=== PATIENT | male | born 1950 | race Caucasian/White ===

== ENCOUNTER 2016-10-24 12:16 | Inpatient (IN) | payer OTHER ==
[2016-10-24] VITALS (15 sets, daily range): BP systolic 72–135; BP diastolic 28–74
[~2016-10-24] VITALS: Ht 170.2 cm; Wt 88.9 kg
[~2016-10-24 12:16] MED LIST: STERILE WATER FOR INJECTION 10ML VIAL ONE; VECURONIUM BROMIDE 10 MG/VIAL IV ONE
[2016-10-24] MEDS ORDERED: TERBUTALINE SULFATE 1MG/ML VIAL SUBCUT STA (12:27)
[2016-10-24] MEDS ORDERED: ALBUTEROL (0.083%) 2.5MG/3ML NEB HHN STA ×2 (12:27→14:58)
[2016-10-24] MEDS ORDERED: IPRATROPIUM BROMIDE (0.02%) 0.5MG/2.5ML NEB HHN STA ×2 (12:27→14:58)
[2016-10-24] MEDS ORDERED: MAGNESIUM 2 G PREMIX 50 ML IV STA (12:27)
[2016-10-24] MEDS ORDERED: METHYLPREDNISOLONE SOD SUCC 125 MG/2 ML VIAL IV STA (12:27)
[2016-10-24] MEDS ORDERED: TERBUTALINE SULFATE 1MG/ML VIAL ONE (12:35)
[2016-10-24 12:56] LABS: BASOPHILS % 0.4 % (0.0-2.0); EOSINOPHILS % 0.6 % (0.0-5.0); HEMOGLOBIN. 11.1 g/dL (14.0-18.0); LYMPHOCYTES % 22.1 % (20.0-50.0); MEAN CORPUSCULAR HEMOGLOBIN 33.2 pg (28.0-32.0); MEAN CORPUSCULAR VOLUME 95.5 fL (80.0-94.0); MEAN PLATELET VOLUME 9.6 fl (7.4-10.4); MONOCYTES % 7.8 % (2.0-8.0); NEUTROPHILS % 69.1 % (40.0-76.0); PLATELET 205 x1000/uL (130-400); RED BLOOD CELL COUNT 3.35 mill/uL (4.7-6.1); RED CELL DISTRIBUTION WIDTH 13.2 % (11.6-14.6)
[2016-10-24] MEDS ORDERED: PIPERACILLIN/TAZ 3.375G PREMIX 50 ML IV ONE (13:00)
[2016-10-24 13:09] LABS: INR 1.5; PROTHROMBIN TIME 15.4 sec
[2016-10-24 13:13] LABS: CARBON DIOXIDE 13 mEq/L (21-32); CHLORIDE 77 mEq/L (98-107)
[2016-10-24] MEDS ORDERED: ASPIRIN 325MG TABLET PO ONE (13:30)
[2016-10-24] MEDS ORDERED: SODIUM CHLORIDE 0.9% 1000ML BAG (SEPSIS BOLUS) IV ONE (13:30)
[2016-10-24] MEDS ORDERED: ENOXAPARIN 80MG/0.8ML SYR SUBCUT ONE (13:45)
[2016-10-24] MEDS ORDERED: FUROSEMIDE 40MG/4ML VIAL IVP ONE ×2 (13:45→16:30)
[2016-10-24] MEDS ORDERED: SODIUM CHLORIDE 0.9% 10ML VIAL ONE (14:00)
[2016-10-24] MEDS ORDERED: IOHEXOL-350 100 ML BOTTLE ONE (14:00)
[2016-10-24] MEDS ORDERED: SODIUM POLYSTYRENE SULFONATE 15 G/60 ML BOT PO ONE (14:45)
[2016-10-24] MEDS ORDERED: DEXTROSE 50% WATER 50ML SYRINGE IV ONE (14:45)
[2016-10-24] MEDS ORDERED: INSULIN REGULAR (HUMULIN R) 300UNITS/3ML IV ONE (14:45)
[2016-10-24] MEDS ORDERED: TERBUTALINE SULFATE 1MG/ML VIAL SUBCUT ONE (15:30)
[2016-10-24] MEDS ORDERED: MORPHINE SULFATE 2 MG/ML CPJ (NOT FOR IM USE) IV ONE (15:30)
[2016-10-24 15:37] LABS: CLARITY URINE CLEAR (CLEAR); COLOR URINE YELLOW (YELLOW); GLUCOSE URINE TRACE (NEGATIVE); KETONES URINE TRACE (NEGATIVE); LEUKOCYTE ESTERASE URINE NEGATIVE (NEGATIVE); NITRITE URINE NEGATIVE (NEGATIVE); OCCULT BLOOD URINE NEGATIVE (NEGATIVE); PROTEIN URINE NEGATIVE (NEGATIVE); SPECIFIC GRAVITY URINE 1.015 (1.005-1.030)
[2016-10-24] MEDS ORDERED: CLONIDINE 0.1MG TABLET PO PRN ×2 (16:30→16:45)
[2016-10-24 16:38] LABS: BG BASE EXCESS -11.9 mmol/L (-2.0-2.0); BG CARBOXYHEMOGLOBIN 0.3 % (0.5-1.5); BG DEOXYHEMOGLOBIN 0.4 % (0.0-5.0); BG FRACTION INSPIRED OXYGEN 100; BG METHEMOGLOBIN 0.2 % (0.0-1.5); BG OXYGEN SATURATION 99.6 % (92.0-98.5); BG OXYHEMOGLOBIN 99.1 % (94.0-97.0); BG PCO2 22.9 mmHg (35.0-45.0); BG PH 7.338 (7.350-7.450); BG PO2 265.9 mmHg (75.0-100.0); BG SAMPLE SITE LEFT RADIAL; BG TOTAL HEMOGLOBIN 12.2 g/dL (12.0-18.0); BG VENT MODE VENT - PCV; BG VENT RATE 4 set
[2016-10-24] MEDS ORDERED: ACETAMINOPHEN 325MG TABLET PO PRN (16:45)
[2016-10-24] MEDS ORDERED: NITROGLYCERIN 0.4MG TABLET SL SL PRN (16:45)
[2016-10-24] MEDS ORDERED: GUAIFENESIN 200MG/10ML SUGAR FREE UDC PO PRN (16:45)
[2016-10-24] MEDS ORDERED: AZITHROMYCIN 500 MG in DEXT 5% WATER 250 ML IV SCH (16:45)
[2016-10-24] MEDS ORDERED: ONDANSETRON HCL 4MG/2ML VIAL IV PRN (16:45)
[2016-10-24] MEDS ORDERED: DOCUSATE SODIUM 100MG CAPSULE PO PRN (16:45)
[2016-10-24] MEDS ORDERED: TRAMADOL 50MG TABLET PO PRN (16:45)
[2016-10-24] MEDS ORDERED: IPRATROPIUM/ALBUTEROL 0.5-3(2.5)MG/3ML NEB INH PRN (16:45)
[2016-10-24] MEDS ORDERED: LOSARTAN POTASSIUM 25 MG TABLET PO SCH (17:00)
[2016-10-24] MEDS ORDERED: PROPOFOL 10MG/ML 100ML 100 ML IV ONE ×2 (17:00→17:06)
[2016-10-24] MEDS ORDERED: KETOROLAC 15MG/ML VIAL IV PRN (17:08)
[2016-10-24 17:13] LABS: FOLIC ACID (FOLATE) SERUM 3.9 ng/mL (>5.38)
[2016-10-24 17:32] LABS: HEPATITIS B SURFACE ANTIGEN NEGATIVE
[2016-10-24 18:00] LABS: HEPATITIS B CORE AB IGM NEGATIVE
[2016-10-24 18:01] LABS: HEPATITIS A AB IGM NEGATIVE (NEGATIVE)
[2016-10-24] MEDS ORDERED: STERILE WATER FOR INJECTION 10ML VIAL ONE (19:00)
[2016-10-24] MEDS ORDERED: VECURONIUM BROMIDE 10 MG/VIAL IV ONE ×2 (19:00)
[2016-10-24] MEDS ORDERED: SUCCINYLCHOLINE CHLORIDE 200MG/10ML VIAL IV ONE (19:00)
[2016-10-24] MEDS ORDERED: ETOMIDATE 2MG/ML 10ML VIAL IV ONE ×2 (19:00)
[2016-10-24] MEDS: LORAZEPAM 2MG/ML CPJ IV PRN (19:54)
[2016-10-24] MEDS ORDERED: NA PHOS,M-B/NA PHOS,DI-BA ENEMA 118ML PR PRN (20:00)
[2016-10-24] MEDS: IPRATROPIUM/ALBUTEROL 0.5-3(2.5)MG/3ML NEB HHN SCH (20:00)
[2016-10-24] MEDS ORDERED: ZOLPIDEM TARTRATE 5MG TABLET PO PRN (20:00)
[2016-10-24 20:26] LABS: BG BASE EXCESS -16.3 mmol/L (-2.0-2.0); BG CARBOXYHEMOGLOBIN 0.4 % (0.5-1.5); BG DEOXYHEMOGLOBIN 8.2 % (0.0-5.0); BG FRACTION INSPIRED OXYGEN 100; BG HCO3 ACT 12.5 mmol/L (22.0-26.0); BG METHEMOGLOBIN 0.1 % (0.0-1.5); BG OXYGEN SATURATION 91.8 % (92.0-98.5); BG OXYHEMOGLOBIN 91.3 % (94.0-97.0); BG PCO2 40.3 mmHg (35.0-45.0); BG PH 7.108 (7.350-7.450); BG PO2 84.5 mmHg (75.0-100.0); BG SAMPLE SITE RIGHT RADIAL; BG TIDAL VOLUME(mL) 500 mL; BG TOTAL HEMOGLOBIN 11.8 g/dL (12.0-18.0); BG VENT MODE VENT - A/C; BG VENT RATE 14 set
[2016-10-24] MEDS ORDERED: SODIUM BICARBONATE 8.4% 1 MEQ/ML 50ML SYR IV NR (20:45)
[2016-10-24] MEDS ORDERED: ENOXAPARIN 60MG/0.6ML SYR SUBCUT SCH (21:00)
[2016-10-24] MEDS ORDERED: SODIUM BICARBONATE 100 MEQ in DEXTROSE 5% WATER 1,000 ML IV SCH (21:15)
[2016-10-24 21:52] LABS: CHLORIDE 79 mEq/L (98-107)
[2016-10-24 21:56] LABS: CARBON DIOXIDE 19 mEq/L (21-32); ETHANOL BLOOD < 10 mg/dL
[2016-10-24 21:57] LABS: LDL CHOLESTEROL 55 mg/dL (5-100); TOTAL IRON BINDING CAPACITY 249 ug/dL (250-450)
[2016-10-24] MEDS: SODIUM ACETATE 100 MEQ in DEXTROSE 5% WATER 1,000 ML IV SCH (21:57)
[2016-10-24] MEDS ORDERED: LEVOFLOXACIN 500MG PREMIX 100 ML IV SCH (22:00)
[2016-10-24] MEDS ORDERED: ENOXAPARIN 80MG/0.8ML SYR SUBCUT NR (22:00)
[2016-10-24] MEDS ORDERED: SODIUM ACETATE 100 MEQ in DEXTROSE 5% WATER 1,000 ML IV SCH (22:00)
[2016-10-24 22:01] LABS: HDL CHOLESTEROL 33 mg/dL (40-59)
[2016-10-25] VITALS (97 sets, daily range): BP systolic 0–157; BP diastolic -20–76
[2016-10-25] MEDS ORDERED: FOLIC ACID 1 MG in SODIUM CHLORIDE 0.9% 500 ML IV NR ×2
[2016-10-25] MEDS: PHENYLEPHRINE 20 MG in DEXT 5% WATER 248 ML IV PRN ×6 (00:13→19:14)
[2016-10-25] MEDS: PROPOFOL 10MG/ML 100ML 100 ML IV PRN ×6 (01:18→23:14)
[2016-10-25] MEDS: PIPERACILLIN/TAZ 3.375G PREMIX 50 ML IV SCH ×4 (01:18→18:12)
[2016-10-25] MEDS: IPRATROPIUM/ALBUTEROL 0.5-3(2.5)MG/3ML NEB HHN SCH ×5 (03:21→21:09)
[2016-10-25] MEDS: NITROGLYCERIN OINT 1GM/INCH UDPKT TD SCH ×5 (05:17→23:23)
[2016-10-25 06:17] LABS: BASOPHILS % 0.2 % (0.0-2.0); EOSINOPHILS % 0.1 % (0.0-5.0); HEMOGLOBIN. 9.5 g/dL (14.0-18.0); LYMPHOCYTES % 11.7 % (20.0-50.0); MEAN CORPUSCULAR HEMOGLOBIN 33.2 pg (28.0-32.0); MEAN CORPUSCULAR VOLUME 94.3 fL (80.0-94.0); MEAN PLATELET VOLUME 9.5 fl (7.4-10.4); MONOCYTES % 5.2 % (2.0-8.0); NEUTROPHILS % 82.8 % (40.0-76.0); PLATELET 195 x1000/uL (130-400); RED BLOOD CELL COUNT 2.87 mill/uL (4.7-6.1); RED CELL DISTRIBUTION WIDTH 13.3 % (11.6-14.6)
[2016-10-25 06:22] LABS: BG BASE EXCESS -2.4 mmol/L (-2.0-2.0); BG CARBOXYHEMOGLOBIN 0.1 % (0.5-1.5); BG DEOXYHEMOGLOBIN 8.6 % (0.0-5.0); BG FRACTION INSPIRED OXYGEN 100; BG HCO3 ACT 22.9 mmol/L (22.0-26.0); BG OXYGEN SATURATION 91.4 % (92.0-98.5); BG OXYHEMOGLOBIN 91.3 % (94.0-97.0); BG PCO2 41.5 mmHg (35.0-45.0); BG SAMPLE SITE LEFT RADIAL; BG TIDAL VOLUME(mL) 500 mL; BG TOTAL HEMOGLOBIN 10.6 g/dL (12.0-18.0); BG VENT MODE VENT - A/C; BG VENT RATE 14 set
[2016-10-25 06:43] LABS: CARBON DIOXIDE 23 mEq/L (21-32); CHLORIDE 79 mEq/L (98-107); CREATINE KINASE MB FRACTION 16.8 ng/mL (0.5-3.6)
[2016-10-25 06:58] LABS: CREATINE KINASE 1331 IU/L (39-308); HDL CHOLESTEROL 28 mg/dL (40-59); LDL CHOLESTEROL 45 mg/dL (5-100)
[2016-10-25 08:03] LABS: *AMPHETAMINES SCREEN URINE NEGATIVE (NEGATIVE); *BARBITURATES SCREEN URINE NEGATIVE (NEGATIVE); *BENZODIAZEPINES SCREEN URINE NEGATIVE (NEGATIVE); *COCAINE SCREEN URINE NEGATIVE (NEGATIVE); CANNABINOID URINE SCREEN NEGATIVE (NEGATIVE); METHADONE URINE SCREEN NEGATIVE (NEGATIVE); OPIATES URINE SCREEN PRESUMTIVE POSITIVE (NEGATIVE); PHENCYCLIDINE URINE SCREEN NEGATIVE (NEGATIVE)
[2016-10-25] MEDS: SODIUM ACETATE 100 MEQ in DEXTROSE 5% WATER 1,000 ML IV SCH (08:51)
[2016-10-25] MEDS ORDERED: ENOXAPARIN 80MG/0.8ML SYR SUBCUT SCH ×2 (09:00→21:00)
[2016-10-25] MEDS ORDERED: PANTOPRAZOLE SODIUM 40 MG/VIAL IV SCH (09:00)
[2016-10-25] MEDS: ASPIRIN 325MG EC TABLET PO SCH (09:06)
[2016-10-25] MEDS: FOLIC ACID 1MG TABLET PO SCH (09:06)
[2016-10-25] MEDS ORDERED: SODIUM ACETATE 150 MEQ in DEXTROSE 5% WATER 1,000 ML IV SCH (11:30)
[2016-10-25] MEDS: ENOXAPARIN 80MG/0.8ML SYR SUBCUT SCH ×2 (12:04→20:16)
[2016-10-25] MEDS ORDERED: SODIUM CHLORIDE 3% 500ML IV SOLN IV ONE (18:15)
[2016-10-25] MEDS: SODIUM CHLORIDE 3% 500 ML IV SCH (20:16)
[2016-10-25] MEDS: MORPHINE SULFATE 2 MG/ML CPJ (NOT FOR IM USE) IV PRN (22:24)
[2016-10-25] MEDS ORDERED: PHENYLEPHRINE 80 MG in DEXT 5% WATER 500 ML IV PRN (23:00)
[2016-10-25] MEDS ORDERED: LEVOFLOXACIN 500MG PREMIX 100 ML IV SCH (23:30)
[2016-10-26] VITALS (99 sets, daily range): BP systolic 70–144; BP diastolic 22–134
[2016-10-26] MEDS: LORAZEPAM 2MG/ML CPJ IV PRN ×4 (00:27→15:00)
[2016-10-26] MEDS: PHENYLEPHRINE 80 MG in DEXT 5% WATER 500 ML IV PRN ×2 (00:28→09:18)
[2016-10-26] MEDS: PIPERACILLIN/TAZ 3.375G PREMIX 50 ML IV SCH ×4 (00:28→17:20)
[2016-10-26] MEDS: IPRATROPIUM/ALBUTEROL 0.5-3(2.5)MG/3ML NEB HHN SCH ×6 (00:40→20:17)
[2016-10-26] MEDS: PROPOFOL 10MG/ML 100ML 100 ML IV PRN ×6 (02:11→23:58)
[2016-10-26] MEDS: MORPHINE SULFATE 2 MG/ML CPJ (NOT FOR IM USE) IV PRN (03:25)
[2016-10-26] MEDS ORDERED: NOREPINEPHRINE 16 MG in DEXT 5% WATER 234 ML IV PRN (04:15)
[2016-10-26 04:30] LABS: BG BASE EXCESS -2.8 mmol/L (-2.0-2.0); BG CARBOXYHEMOGLOBIN 0.3 % (0.5-1.5); BG DEOXYHEMOGLOBIN 19.6 % (0.0-5.0); BG FRACTION INSPIRED OXYGEN 100; BG HCO3 ACT 22.5 mmol/L (22.0-26.0); BG METHEMOGLOBIN 0.3 % (0.0-1.5); BG OXYGEN SATURATION 80.3 % (92.0-98.5); BG OXYHEMOGLOBIN 79.8 % (94.0-97.0); BG PCO2 41.3 mmHg (35.0-45.0); BG PH 7.354 (7.350-7.450); BG PO2 49.2 mmHg (75.0-100.0); BG SAMPLE SITE LEFT RADIAL; BG TIDAL VOLUME(mL) 500 mL; BG TOTAL HEMOGLOBIN 9.6 g/dL (12.0-18.0); BG VENT MODE VENT - A/C; BG VENT RATE 14 set
[2016-10-26] MEDS: NITROGLYCERIN OINT 1GM/INCH UDPKT TD SCH ×4 (05:00→23:28)
[2016-10-26 06:10] LABS: CARBON DIOXIDE 23 mEq/L (21-32); CHLORIDE 78 mEq/L (98-107)
[2016-10-26 06:18] LABS: BASOPHILS % 0.8 % (0.0-2.0); EOSINOPHILS % 0.6 % (0.0-5.0); HEMATOCRIT. 26.7 % (42.0-52.0); HEMOGLOBIN. 9.5 g/dL (14.0-18.0); LYMPHOCYTES % 16.2 % (20.0-50.0); MEAN CORPUSCULAR HEMOGLOBIN 33.7 pg (28.0-32.0); MEAN CORPUSCULAR VOLUME 94.8 fL (80.0-94.0); MEAN PLATELET VOLUME 9.2 fl (7.4-10.4); MONOCYTES % 5.1 % (2.0-8.0); NEUTROPHILS % 77.3 % (40.0-76.0); PLATELET 167 x1000/uL (130-400); RED BLOOD CELL COUNT 2.82 mill/uL (4.7-6.1); RED CELL DISTRIBUTION WIDTH 13.8 % (11.6-14.6)
[2016-10-26 06:35] LABS: CREATINE KINASE 997 IU/L (39-308); CREATINE KINASE MB FRACTION 7.5 ng/mL (0.5-3.6); PHOSPHORUS 5.5 mg/dL (2.5-4.9)
[2016-10-26 07:55] LABS: BG BASE EXCESS -5.1 mmol/L (-2.0-2.0); BG CARBOXYHEMOGLOBIN 0.4 % (0.5-1.5); BG DEOXYHEMOGLOBIN 22.6 % (0.0-5.0); BG HCO3 ACT 19.7 mmol/L (22.0-26.0); BG METHEMOGLOBIN 0.1 % (0.0-1.5); BG OXYGEN SATURATION 77.3 % (92.0-98.5); BG OXYHEMOGLOBIN 76.9 % (94.0-97.0); BG PCO2 35.5 mmHg (35.0-45.0); BG PH 7.362 (7.350-7.450); BG PO2 45.8 mmHg (75.0-100.0); BG SAMPLE SITE A-LINE; BG TIDAL VOLUME(mL) 550 mL; BG TOTAL HEMOGLOBIN 9.5 g/dL (12.0-18.0); BG VENT MODE VENT - A/C; BG VENT RATE 14 set
[2016-10-26] MEDS ORDERED: DOBUTAMINE 250MG PREMIX 250 ML IV PRN (08:15)
[2016-10-26] MEDS ORDERED: NOREPINEPHRINE 16 MG in SODIUM CHLORIDE 0.9% 234 ML IV PRN (09:00)
[2016-10-26] MEDS: FOLIC ACID 1MG TABLET PO SCH (09:27)
[2016-10-26] MEDS: ENOXAPARIN 80MG/0.8ML SYR SUBCUT SCH ×2 (09:27→20:48)
[2016-10-26] MEDS: ASPIRIN 325MG EC TABLET PO SCH (09:27)
[2016-10-26] MEDS: PANTOPRAZOLE SODIUM 40 MG/VIAL IV SCH (11:51)
[2016-10-26] MEDS: MIDAZOLAM HCL 50 MG in DEXTROSE 5% WATER 40 ML IV PRN (11:54)
[2016-10-26] MEDS: FENTANYL CITRATE/PF 500 MCG in SODIUM CHLORIDE 0.9% 40 ML IV PRN (11:56)
[2016-10-26 13:12] LABS: TOTAL PROTEIN RANDOM URINE 16.4 mg/dL (Not Estab.)
[2016-10-26] MEDS ORDERED: HYDROCORTISONE SOD SUCCINATE 1MG/ML 1ML INJ SYR(NEO) IV SCH (14:00)
[2016-10-26 15:14] LABS: BG BASE EXCESS -7.8 mmol/L (-2.0-2.0); BG CARBOXYHEMOGLOBIN 0.3 % (0.5-1.5); BG DEOXYHEMOGLOBIN 1.1 % (0.0-5.0); BG METHEMOGLOBIN 0.2 % (0.0-1.5); BG OXYGEN SATURATION 98.9 % (92.0-98.5); BG OXYHEMOGLOBIN 98.4 % (94.0-97.0); BG PCO2 32.2 mmHg (35.0-45.0); BG PO2 156.5 mmHg (75.0-100.0); BG SAMPLE SITE A-LINE; BG TIDAL VOLUME(mL) 550 mL; BG TOTAL HEMOGLOBIN 10.2 g/dL (12.0-18.0); BG VENT MODE VENT - A/C; BG VENT RATE 14 set
[2016-10-26] MEDS: HYDROCORTISONE SOD SUCCINATE 100 MG/2 ML VIAL IV SCH ×2 (15:16→21:04)
[2016-10-26] MEDS ORDERED: LORAZEPAM 2MG/ML CPJ IV NR (16:00)
[2016-10-26] MEDS ORDERED: VECURONIUM BROMIDE 10 MG/VIAL IV NR (16:15)
[2016-10-26] MEDS: SODIUM CHLORIDE 0.9% IV PRN (17:20)
[2016-10-26] MEDS: DOBUTAMINE HCL IV PRN (17:20)
[2016-10-26] MEDS: PHENYLEPHRINE 80 MG in SODIUM CHLORIDE 0.9% 492 ML IV PRN (18:31)
[2016-10-26] MEDS ORDERED: NOREPINEPHRINE IV PRN ×2 (19:37→20:00)
[2016-10-26] MEDS ORDERED: SODIUM CHLORIDE 0.9% IV PRN ×2 (19:37→20:00)
[2016-10-26] MEDS: NOREPINEPHRINE 32 MG in SODIUM CHLORIDE 0.9% 468 ML IV PRN (23:57)
[2016-10-27] VITALS (96 sets, daily range): BP systolic 48–234; BP diastolic 37–221
[2016-10-27] MEDS: IPRATROPIUM/ALBUTEROL 0.5-3(2.5)MG/3ML NEB HHN SCH ×6 (00:05→20:20)
[2016-10-27] MEDS ORDERED: SODIUM CHLORIDE 3% 500ML IV SOLN IV ONE (00:15)
[2016-10-27] MEDS: SODIUM CHLORIDE 3% 500 ML IV SCH ×2 (01:19→19:17)
[2016-10-27] MEDS: PIPERACILLIN/TAZ 3.375G PREMIX 50 ML IV SCH ×3 (01:21→18:24)
[2016-10-27] MEDS: PHENYLEPHRINE 80 MG in SODIUM CHLORIDE 0.9% 492 ML IV PRN ×2 (02:02→12:52)
[2016-10-27] MEDS: PROPOFOL 10MG/ML 100ML 100 ML IV PRN ×7 (03:25→22:14)
[2016-10-27] MEDS: HYDROCORTISONE SOD SUCCINATE 100 MG/2 ML VIAL IV SCH ×3 (05:53→21:27)
[2016-10-27] MEDS: NITROGLYCERIN OINT 1GM/INCH UDPKT TD SCH ×4 (05:54→23:14)
[2016-10-27 06:04] LABS: BASOPHILS % 0.2 % (0.0-2.0); EOSINOPHILS % 0.4 % (0.0-5.0); HEMATOCRIT. 27.1 % (42.0-52.0); HEMOGLOBIN. 9.4 g/dL (14.0-18.0); LYMPHOCYTES % 12.3 % (20.0-50.0); MEAN CORPUSCULAR HEMOGLOBIN 33.3 pg (28.0-32.0); MEAN CORPUSCULAR VOLUME 96.2 fL (80.0-94.0); MEAN PLATELET VOLUME 9.2 fl (7.4-10.4); NEUTROPHILS % 80.1 % (40.0-76.0); PLATELET 166 x1000/uL (130-400); RED BLOOD CELL COUNT 2.82 mill/uL (4.7-6.1); RED CELL DISTRIBUTION WIDTH 13.2 % (11.6-14.6)
[2016-10-27 06:10] LABS: CARBON DIOXIDE 20 mEq/L (21-32); CHLORIDE 86 mEq/L (98-107); PHOSPHORUS 7.6 mg/dL (2.5-4.9)
[2016-10-27 07:57] LABS: BG BASE EXCESS -9.9 mmol/L (-2.0-2.0); BG CARBOXYHEMOGLOBIN 0.3 % (0.5-1.5); BG DEOXYHEMOGLOBIN 0.7 % (0.0-5.0); BG FRACTION INSPIRED OXYGEN 100; BG HCO3 ACT 17.4 mmol/L (22.0-26.0); BG OXYGEN SATURATION 99.3 % (92.0-98.5); BG PCO2 44.6 mmHg (35.0-45.0); BG PO2 237.8 mmHg (75.0-100.0); BG SAMPLE SITE A-LINE; BG TIDAL VOLUME(mL) 550 mL; BG TOTAL HEMOGLOBIN 9.8 g/dL (12.0-18.0); BG VENT MODE VENT - A/C; BG VENT RATE 14 set
[2016-10-27] MEDS ORDERED: SODIUM BICARBONATE 8.4% 1 MEQ/ML 50ML SYR IV NR (08:30)
[2016-10-27] MEDS: ASPIRIN 325MG EC TABLET PO SCH (08:48)
[2016-10-27] MEDS: PANTOPRAZOLE SODIUM 40 MG/VIAL IV SCH (08:48)
[2016-10-27] MEDS: FOLIC ACID 1MG TABLET PO SCH (08:48)
[2016-10-27] MEDS: ENOXAPARIN 80MG/0.8ML SYR SUBCUT SCH (08:48)
[2016-10-27] MEDS: SODIUM CHLORIDE 0.9% IV PRN ×2 (08:58→18:24)
[2016-10-27] MEDS: DOBUTAMINE HCL IV PRN ×2 (08:58→18:24)
[2016-10-27] MEDS ORDERED: SODIUM ACETATE 150 MEQ in DEXTROSE 5% WATER 1,000 ML IV SCH (12:00)
[2016-10-27 17:06] LABS: BG BASE EXCESS -3.8 mmol/L (-2.0-2.0); BG CARBOXYHEMOGLOBIN 0.3 % (0.5-1.5); BG FRACTION INSPIRED OXYGEN 70; BG HCO3 ACT 21.7 mmol/L (22.0-26.0); BG METHEMOGLOBIN 0.3 % (0.0-1.5); BG OXYHEMOGLOBIN 98.4 % (94.0-97.0); BG PCO2 41.1 mmHg (35.0-45.0); BG PO2 188.9 mmHg (75.0-100.0); BG SAMPLE SITE A-LINE; BG TIDAL VOLUME(mL) 550 mL; BG VENT MODE VENT - A/C; BG VENT RATE 14 set
[2016-10-27] MEDS ORDERED: DEXTROSE 50% WATER 50ML SYRINGE IV PRN (18:15)
[2016-10-27] MEDS: LEVOFLOXACIN 500MG PREMIX 100 ML IV SCH (21:28)
[2016-10-27] MEDS: CALCIUM GLUCONATE 1,000 MG in DEXTROSE 5% WATER 50 ML IV SCH (21:28)
[2016-10-27 22:17] LABS: BG CARBOXYHEMOGLOBIN 0.3 % (0.5-1.5); BG FRACTION INSPIRED OXYGEN 60; BG HCO3 ACT 21.7 mmol/L (22.0-26.0); BG METHEMOGLOBIN 0.2 % (0.0-1.5); BG OXYHEMOGLOBIN 98.5 % (94.0-97.0); BG PCO2 37.5 mmHg (35.0-45.0); BG PH 7.381 (7.350-7.450); BG PO2 165.5 mmHg (75.0-100.0); BG SAMPLE SITE A-LINE; BG TIDAL VOLUME(mL) 550 mL; BG VENT MODE VENT - A/C; BG VENT RATE 14 set
[2016-10-27] MEDS: CALCITRIOL 0.25MCG CAPSULE PO SCH (22:54)
[2016-10-27] MEDS: BLOOD SUGAR DIAGNOSTIC STRIP TEST SCH (23:15)
[2016-10-27] MEDS: INSULIN LISPRO 100 UNITS/ML SUBCUT SCH (23:16)
[2016-10-28] VITALS (100 sets, daily range): BP systolic 62–140; BP diastolic 16–80
[2016-10-28] MEDS: IPRATROPIUM/ALBUTEROL 0.5-3(2.5)MG/3ML NEB HHN SCH ×7 (00:11→23:46)
[2016-10-28] MEDS: PROPOFOL 10MG/ML 100ML 100 ML IV PRN ×3 (01:15→06:54)
[2016-10-28] MEDS: PIPERACILLIN/TAZ 3.375G PREMIX 50 ML IV SCH ×3 (01:15→17:58)
[2016-10-28] MEDS: SODIUM CHLORIDE 0.9% IV PRN ×2 (02:25→11:09)
[2016-10-28] MEDS: DOBUTAMINE HCL IV PRN ×2 (02:25→11:09)
[2016-10-28] MEDS: NITROGLYCERIN OINT 1GM/INCH UDPKT TD SCH ×3 (05:33→18:00)
[2016-10-28] MEDS: BLOOD SUGAR DIAGNOSTIC STRIP TEST SCH ×3 (05:46→18:00)
[2016-10-28] MEDS: HYDROCORTISONE SOD SUCCINATE 100 MG/2 ML VIAL IV SCH ×3 (05:46→21:38)
[2016-10-28] MEDS: INSULIN LISPRO 100 UNITS/ML SUBCUT SCH ×3 (05:58→18:34)
[2016-10-28 06:20] LABS: CARBON DIOXIDE 26 mEq/L (21-32); CHLORIDE 94 mEq/L (98-107); PHOSPHORUS 5.2 mg/dL (2.5-4.9)
[2016-10-28 06:25] LABS: HEMATOCRIT. 24.3 % (42.0-52.0); HEMOGLOBIN. 8.5 g/dL (14.0-18.0); MEAN CORPUSCULAR HEMOGLOBIN 33.6 pg (28.0-32.0); MEAN CORPUSCULAR VOLUME 96.3 fL (80.0-94.0); MEAN PLATELET VOLUME 8.9 fl (7.4-10.4); PLATELET 123 x1000/uL (130-400); RED BLOOD CELL COUNT 2.52 mill/uL (4.7-6.1); RED CELL DISTRIBUTION WIDTH 13.4 % (11.6-14.6)
[2016-10-28 07:30] LABS: BG BASE EXCESS -4.5 mmol/L (-2.0-2.0); BG CARBOXYHEMOGLOBIN 0.2 % (0.5-1.5); BG DEOXYHEMOGLOBIN 2.2 % (0.0-5.0); BG FRACTION INSPIRED OXYGEN 60; BG HCO3 ACT 19.4 mmol/L (22.0-26.0); BG METHEMOGLOBIN 1.5 % (0.0-1.5); BG OXYGEN SATURATION 97.8 % (92.0-98.5); BG OXYHEMOGLOBIN 96.1 % (94.0-97.0); BG PCO2 31.5 mmHg (35.0-45.0); BG PH 7.408 (7.350-7.450); BG PO2 143.3 mmHg (75.0-100.0); BG SAMPLE SITE A-LINE; BG TIDAL VOLUME(mL) 550 mL; BG TOTAL HEMOGLOBIN 9.7 g/dL (12.0-18.0); BG VENT MODE VENT - A/C; BG VENT RATE 14 set
[2016-10-28] MEDS: MORPHINE SULFATE 2 MG/ML CPJ (NOT FOR IM USE) IV PRN ×2 (08:29→20:31)
[2016-10-28] MEDS ORDERED: ENOXAPARIN 100MG/ML SYR SUBCUT SCH (09:00)
[2016-10-28] MEDS: CALCIUM GLUCONATE 1,000 MG in DEXTROSE 5% WATER 50 ML IV SCH ×2 (09:15→21:38)
[2016-10-28] MEDS: PANTOPRAZOLE SODIUM 40 MG/VIAL IV SCH (09:15)
[2016-10-28] MEDS: ASPIRIN 325MG EC TABLET PO SCH (09:16)
[2016-10-28] MEDS: FOLIC ACID 1MG TABLET PO SCH (09:16)
[2016-10-28] MEDS: CALCITRIOL 0.25MCG CAPSULE PO SCH (09:16)
[2016-10-28] MEDS: LORAZEPAM 2MG/ML CPJ IV PRN (09:16)
[2016-10-28 10:16] LABS: NUCLEATED RED BLOOD CELLS 4 /100 WBC
[2016-10-28 10:17] LABS: PLATELET ESTIMATE NORMAL
[2016-10-28] MEDS: FENTANYL CITRATE/PF 500 MCG in SODIUM CHLORIDE 0.9% 40 ML IV PRN ×2 (12:37→16:52)
[2016-10-28] MEDS ORDERED: LORAZEPAM 2MG/ML CPJ IV PRN (12:45)
[2016-10-28 16:07] LABS: BG CARBOXYHEMOGLOBIN 0.3 % (0.5-1.5); BG DEOXYHEMOGLOBIN 6.8 % (0.0-5.0); BG FRACTION INSPIRED OXYGEN 50; BG HCO3 ACT 20.9 mmol/L (22.0-26.0); BG METHEMOGLOBIN 0.3 % (0.0-1.5); BG OXYGEN SATURATION 93.2 % (92.0-98.5); BG OXYHEMOGLOBIN 92.6 % (94.0-97.0); BG PCO2 32.9 mmHg (35.0-45.0); BG PH 7.421 (7.350-7.450); BG SAMPLE SITE A-LINE; BG TIDAL VOLUME(mL) 550 mL; BG TOTAL HEMOGLOBIN 9.6 g/dL (12.0-18.0); BG VENT MODE VENT - A/C; BG VENT RATE 10 set
[2016-10-28] MEDS ORDERED: AMIODARONE HCL 900 MG in DEXT 5% WATER 482 ML IV SCH (18:00)
[2016-10-28] MEDS: PHENYLEPHRINE 80 MG in SODIUM CHLORIDE 0.9% 492 ML IV PRN (19:57)
[2016-10-28] MEDS: MIDAZOLAM HCL 50 MG in DEXTROSE 5% WATER 40 ML IV PRN (19:57)
[2016-10-28] MEDS ORDERED: FENTANYL CITRATE/PF 1,000 MCG in SODIUM CHLORIDE 0.9% 80 ML IV PRN (20:51)
[2016-10-28] MEDS: FENTANYL CITRATE/PF 1,000 MCG in SODIUM CHLORIDE 0.9% 80 ML IV PRN (23:17)
[2016-10-29] VITALS (95 sets, daily range): BP systolic 44–149; BP diastolic 1–76
[2016-10-29] MEDS: BLOOD SUGAR DIAGNOSTIC STRIP TEST SCH ×4 (00:53→18:27)
[2016-10-29] MEDS: PIPERACILLIN/TAZ 3.375G PREMIX 50 ML IV SCH ×3 (01:51→18:27)
[2016-10-29] MEDS: MIDAZOLAM HCL 100 MG in DEXT 5% WATER 80 ML IV PRN (01:52)
[2016-10-29] MEDS: DOBUTAMINE HCL IV PRN ×2 (02:43→10:27)
[2016-10-29] MEDS: SODIUM CHLORIDE 0.9% IV PRN ×2 (02:43→10:27)
[2016-10-29] MEDS: IPRATROPIUM/ALBUTEROL 0.5-3(2.5)MG/3ML NEB HHN SCH ×5 (03:50→20:57)
[2016-10-29] MEDS: PHENYLEPHRINE 80 MG in SODIUM CHLORIDE 0.9% 492 ML IV PRN ×2 (04:20→15:03)
[2016-10-29] MEDS: NOREPINEPHRINE 32 MG in SODIUM CHLORIDE 0.9% 468 ML IV PRN (04:30)
[2016-10-29] MEDS: HYDROCORTISONE SOD SUCCINATE 100 MG/2 ML VIAL IV SCH ×2 (05:25→20:29)
[2016-10-29 05:34] LABS: BG BASE EXCESS -5.2 mmol/L (-2.0-2.0); BG CARBOXYHEMOGLOBIN 0.3 % (0.5-1.5); BG DEOXYHEMOGLOBIN 1.7 % (0.0-5.0); BG FRACTION INSPIRED OXYGEN 100; BG HCO3 ACT 20.4 mmol/L (22.0-26.0); BG METHEMOGLOBIN 0.2 % (0.0-1.5); BG OXYGEN SATURATION 98.3 % (92.0-98.5); BG OXYHEMOGLOBIN 97.8 % (94.0-97.0); BG PCO2 39.6 mmHg (35.0-45.0); BG PH 7.329 (7.350-7.450); BG PO2 139.6 mmHg (75.0-100.0); BG SAMPLE SITE A-LINE; BG TIDAL VOLUME(mL) 550 mL; BG TOTAL HEMOGLOBIN 10.5 g/dL (12.0-18.0); BG VENT MODE VENT - A/C; BG VENT RATE 14 set
[2016-10-29] MEDS: INSULIN LISPRO 100 UNITS/ML SUBCUT SCH ×4 (05:36→18:00)
[2016-10-29] MEDS: NITROGLYCERIN OINT 1GM/INCH UDPKT TD SCH ×4 (05:40→18:00)
[2016-10-29 05:47] LABS: HEMATOCRIT 26.4 % (42.0-52.0); HEMATOCRIT. 26.4 % (42.0-52.0); HEMOGLOBIN 9.1 g/dL (14.0-18.0); HEMOGLOBIN. 9.1 g/dL (14.0-18.0); MEAN CORPUSCULAR HEMOGLOBIN 33.4 pg (28.0-32.0); MEAN CORPUSCULAR VOLUME 96.5 fL (80.0-94.0); MEAN PLATELET VOLUME 8.9 fl (7.4-10.4); PLATELET 130 x1000/uL (130-400); RED BLOOD CELL COUNT 2.74 mill/uL (4.7-6.1); RED CELL DISTRIBUTION WIDTH 13.6 % (11.6-14.6)
[2016-10-29 06:10] LABS: A/G RATIO 0.7 (0.7-1.7); ALBUMIN 2.8 g/dL (2.9-4.4); ALPHA-1-GLOBULIN 0.5 g/dL (0.0-0.4); ALPHA-2-GLOBULIN 1.1 g/dL (0.4-1.0); GAMMA GLOBULINS 1.3 g/dL (0.4-1.8); GLOBULIN TOTAL 3.9 g/dL (2.2-3.9); M-SPIKE Not Observed g/dL (Not Observed); TOTAL PROTEIN SERUM 6.7 g/dL (6.0-8.5)
[2016-10-29 06:13] LABS: CARBON DIOXIDE 23 mEq/L (21-32); CHLORIDE 97 mEq/L (98-107); PHOSPHORUS 6.4 mg/dL (2.5-4.9)
[2016-10-29 08:00] LABS: NUCLEATED RED BLOOD CELLS 10 /100 WBC
[2016-10-29 08:01] LABS: PLATELET ESTIMATE NORMAL
[2016-10-29] MEDS ORDERED: ASPIRIN 81MG EC TABLET PO SCH (09:00)
[2016-10-29] MEDS: FENTANYL CITRATE/PF 1,000 MCG in SODIUM CHLORIDE 0.9% 80 ML IV PRN ×2 (09:06→20:18)
[2016-10-29] MEDS: CALCITRIOL 0.25MCG CAPSULE PO SCH (09:37)
[2016-10-29] MEDS: CALCIUM GLUCONATE 1,000 MG in DEXTROSE 5% WATER 50 ML IV SCH ×2 (09:37→20:30)
[2016-10-29] MEDS: FOLIC ACID 1MG TABLET PO SCH (09:37)
[2016-10-29] MEDS: ASPIRIN 81MG TABLET NG SCH (09:38)
[2016-10-29] MEDS: PANTOPRAZOLE SODIUM 40 MG/VIAL IV SCH (09:38)
[2016-10-29] MEDS ORDERED: BISACODYL 10MG SUPP PR PRN (10:45)
[2016-10-29] MEDS ORDERED: BISACODYL 10MG SUPP PR NR (10:45)
[2016-10-29] MEDS ORDERED: FUROSEMIDE 40MG/4ML VIAL IVP SCH (12:30)
[2016-10-29 12:40] LABS: BG BASE EXCESS -4.8 mmol/L (-2.0-2.0); BG CARBOXYHEMOGLOBIN 0.1 % (0.5-1.5); BG FRACTION INSPIRED OXYGEN 70; BG HCO3 ACT 19.9 mmol/L (22.0-26.0); BG METHEMOGLOBIN 0.1 % (0.0-1.5); BG OXYHEMOGLOBIN 86.8 % (94.0-97.0); BG PCO2 35.3 mmHg (35.0-45.0); BG PO2 58.3 mmHg (75.0-100.0); BG SAMPLE SITE A-LINE; BG TIDAL VOLUME(mL) 550 mL; BG TOTAL HEMOGLOBIN 9.4 g/dL (12.0-18.0); BG VENT MODE VENT - A/C; BG VENT RATE 14 set
[2016-10-29] MEDS ORDERED: DIGOXIN 500MCG/2ML AMP IV NR (13:00)
[2016-10-29] MEDS: METOCLOPRAMIDE HCL 10MG/2ML VIAL IV SCH ×2 (13:02→18:18)
[2016-10-29] MEDS ORDERED: MORPHINE SULFATE 2 MG/ML CPJ (NOT FOR IM USE) IV PRN (13:07)
[2016-10-29] MEDS: ENOXAPARIN 30MG/0.3ML SYR SUBCUT SCH (13:07)
[2016-10-29] MEDS: CALCITRIOL 1MCG/ML AMP IV SCH (13:34)
[2016-10-29 14:00] LABS: AMMONIA 92 uMol/L (<32)
[2016-10-29] MEDS: DOBUTAMINE HCL 500 MG in SODIUM CHLORIDE 0.9% 210 ML IV PRN (15:03)
[2016-10-29] MEDS: LACTULOSE 20G/30ML UDC PO SCH ×2 (16:13→20:29)
[2016-10-29 16:14] LABS: BG BASE EXCESS -3.6 mmol/L (-2.0-2.0); BG CARBOXYHEMOGLOBIN 0.3 % (0.5-1.5); BG DEOXYHEMOGLOBIN 5.4 % (0.0-5.0); BG FRACTION INSPIRED OXYGEN 70; BG HCO3 ACT 21.5 mmol/L (22.0-26.0); BG METHEMOGLOBIN 0.3 % (0.0-1.5); BG OXYGEN SATURATION 94.6 % (92.0-98.5); BG PCO2 38.8 mmHg (35.0-45.0); BG PH 7.361 (7.350-7.450); BG PO2 86.7 mmHg (75.0-100.0); BG SAMPLE SITE A-LINE; BG TIDAL VOLUME(mL) 550 mL; BG TOTAL HEMOGLOBIN 8.9 g/dL (12.0-18.0); BG VENT MODE VENT - A/C; BG VENT RATE 14 set
[2016-10-29] MEDS: RIFAXIMIN 550 MG TABLET PO SCH (20:29)
[2016-10-29] MEDS: LEVOFLOXACIN 500MG PREMIX 100 ML IV SCH (20:30)
[2016-10-30] VITALS (75 sets, daily range): BP systolic 91–150; BP diastolic 41–76
[2016-10-30] MEDS: IPRATROPIUM/ALBUTEROL 0.5-3(2.5)MG/3ML NEB HHN SCH ×7 (00:19→23:57)
[2016-10-30] MEDS: BLOOD SUGAR DIAGNOSTIC STRIP TEST SCH ×4 (00:29→18:27)
[2016-10-30] MEDS: LACTULOSE 20G/30ML UDC PO SCH ×6 (00:32→20:49)
[2016-10-30] MEDS: METOCLOPRAMIDE HCL 10MG/2ML VIAL IV SCH ×4 (00:32→18:26)
[2016-10-30] MEDS: MIDAZOLAM HCL 100 MG in DEXT 5% WATER 80 ML IV PRN ×2 (00:59→15:53)
[2016-10-30] MEDS: PIPERACILLIN/TAZ 3.375G PREMIX 50 ML IV SCH ×3 (02:32→18:26)
[2016-10-30] MEDS: PHENYLEPHRINE 80 MG in SODIUM CHLORIDE 0.9% 492 ML IV PRN (03:29)
[2016-10-30] MEDS: FENTANYL CITRATE/PF 1,000 MCG in SODIUM CHLORIDE 0.9% 80 ML IV PRN ×2 (04:51→16:37)
[2016-10-30] MEDS: DOBUTAMINE HCL 500 MG in SODIUM CHLORIDE 0.9% 210 ML IV PRN (04:51)
[2016-10-30 05:42] LABS: HEMATOCRIT. 26.4 % (42.0-52.0); HEMOGLOBIN. 9.1 g/dL (14.0-18.0); MEAN CORPUSCULAR HEMOGLOBIN 33.5 pg (28.0-32.0); MEAN CORPUSCULAR VOLUME 97.4 fL (80.0-94.0); MEAN PLATELET VOLUME 8.5 fl (7.4-10.4); PLATELET 106 x1000/uL (130-400); RED BLOOD CELL COUNT 2.71 mill/uL (4.7-6.1); RED CELL DISTRIBUTION WIDTH 13.8 % (11.6-14.6)
[2016-10-30] MEDS: NITROGLYCERIN OINT 1GM/INCH UDPKT TD SCH ×4 (05:56→18:00)
[2016-10-30] MEDS: INSULIN LISPRO 100 UNITS/ML SUBCUT SCH ×4 (06:00→18:27)
[2016-10-30 06:32] LABS: CARBON DIOXIDE 25 mEq/L (21-32); CHLORIDE 102 mEq/L (98-107); PHOSPHORUS 3.9 mg/dL (2.5-4.9)
[2016-10-30 07:08] LABS: BG BASE EXCESS -2.3 mmol/L (-2.0-2.0); BG DEOXYHEMOGLOBIN 1.8 % (0.0-5.0); BG HCO3 ACT 22.3 mmol/L (22.0-26.0); BG METHEMOGLOBIN 0.3 % (0.0-1.5); BG OXYGEN SATURATION 98.2 % (92.0-98.5); BG OXYHEMOGLOBIN 97.9 % (94.0-97.0); BG PCO2 37.5 mmHg (35.0-45.0); BG PH 7.392 (7.350-7.450); BG PO2 138.5 mmHg (75.0-100.0); BG SAMPLE SITE A-LINE; BG TIDAL VOLUME(mL) 550 mL; BG VENT MODE VENT - A/C; BG VENT RATE 14 set
[2016-10-30] MEDS: CALCITRIOL 1MCG/ML AMP IV SCH (09:07)
[2016-10-30] MEDS: CALCIUM GLUCONATE 1,000 MG in DEXTROSE 5% WATER 50 ML IV SCH (09:08)
[2016-10-30] MEDS: HYDROCORTISONE SOD SUCCINATE 100 MG/2 ML VIAL IV SCH ×2 (09:08→22:21)
[2016-10-30] MEDS: PANTOPRAZOLE SODIUM 40 MG/VIAL IV SCH (09:08)
[2016-10-30] MEDS: ENOXAPARIN 30MG/0.3ML SYR SUBCUT SCH (09:09)
[2016-10-30] MEDS: RIFAXIMIN 550 MG TABLET PO SCH ×2 (09:09→20:49)
[2016-10-30] MEDS: ASPIRIN 81MG TABLET NG SCH (09:09)
[2016-10-30] MEDS: FOLIC ACID 1MG TABLET PO SCH (09:09)
[2016-10-30 10:32] LABS: NUCLEATED RED BLOOD CELLS 18 /100 WBC; PLATELET ESTIMATE DECREASED
[2016-10-30] MEDS ORDERED: FUROSEMIDE 40MG/4ML VIAL IVP NR (17:45)
[2016-10-30] MEDS: QUETIAPINE FUMARATE 25MG TABLET PO SCH (20:49)
[2016-10-31] VITALS (48 sets, daily range): BP systolic 95–133; BP diastolic 58–83
[2016-10-31] MEDS: BLOOD SUGAR DIAGNOSTIC STRIP TEST SCH ×5 (00:16→23:40)
[2016-10-31] MEDS: METOCLOPRAMIDE HCL 10MG/2ML VIAL IV SCH ×5 (00:35→23:40)
[2016-10-31] MEDS: LACTULOSE 20G/30ML UDC PO SCH ×7 (00:35→23:40)
[2016-10-31] MEDS: PIPERACILLIN/TAZ 3.375G PREMIX 50 ML IV SCH ×3 (02:49→19:00)
[2016-10-31] MEDS: FENTANYL CITRATE/PF 1,000 MCG in SODIUM CHLORIDE 0.9% 80 ML IV PRN ×2 (02:50→17:04)
[2016-10-31] MEDS: IPRATROPIUM/ALBUTEROL 0.5-3(2.5)MG/3ML NEB HHN SCH ×6 (03:59→23:37)
[2016-10-31] MEDS: NITROGLYCERIN OINT 1GM/INCH UDPKT TD SCH ×5 (05:16→23:22)
[2016-10-31] MEDS: HYDROCORTISONE SOD SUCCINATE 100 MG/2 ML VIAL IV SCH ×2 (05:23→20:07)
[2016-10-31] MEDS: INSULIN LISPRO 100 UNITS/ML SUBCUT SCH ×5 (06:57→23:41)
[2016-10-31 08:04] LABS: BG BASE EXCESS 2.4 mmol/L (-2.0-2.0); BG CARBOXYHEMOGLOBIN 0.3 % (0.5-1.5); BG DEOXYHEMOGLOBIN 1.7 % (0.0-5.0); BG FRACTION INSPIRED OXYGEN 50; BG METHEMOGLOBIN 0.3 % (0.0-1.5); BG OXYGEN SATURATION 98.3 % (92.0-98.5); BG OXYHEMOGLOBIN 97.7 % (94.0-97.0); BG PCO2 42.1 mmHg (35.0-45.0); BG PH 7.425 (7.350-7.450); BG PO2 150.2 mmHg (75.0-100.0); BG SAMPLE SITE RIGHT RADIAL; BG TIDAL VOLUME(mL) 550 mL; BG TOTAL HEMOGLOBIN 9.2 g/dL (12.0-18.0); BG VENT MODE VENT - A/C; BG VENT RATE 14 set
[2016-10-31] MEDS: MIDAZOLAM HCL 100 MG in DEXT 5% WATER 80 ML IV PRN (08:24)
[2016-10-31] MEDS: RIFAXIMIN 550 MG TABLET PO SCH ×2 (08:48→20:08)
[2016-10-31] MEDS: QUETIAPINE FUMARATE 25MG TABLET PO SCH ×2 (08:48→20:08)
[2016-10-31] MEDS: ASPIRIN 81MG TABLET NG SCH (08:48)
[2016-10-31] MEDS: FOLIC ACID 1MG TABLET PO SCH (08:48)
[2016-10-31] MEDS: PANTOPRAZOLE SODIUM 40 MG/VIAL IV SCH (08:52)
[2016-10-31] MEDS: ENOXAPARIN 30MG/0.3ML SYR SUBCUT SCH (08:52)
[2016-10-31] MEDS: CALCITRIOL 1MCG/ML AMP IV SCH (08:53)
[2016-10-31] MEDS: LEVOFLOXACIN 500MG PREMIX 100 ML IV SCH (12:42)
[2016-10-31 13:11] LABS: 25-HYDROXY VITAMIN D3 8.1 ng/mL (.)
[2016-10-31 13:38] LABS: AMMONIA 81 uMol/L (<32)
[2016-10-31] MEDS ORDERED: MIDAZOLAM HCL 100 MG in DEXT 5% WATER 80 ML IV PRN (20:01)
[2016-10-31] MEDS: ACETAMINOPHEN 650MG/20.3ML UDC PO PRN (20:29)
[2016-10-31] MEDS ORDERED: ENOXAPARIN 30MG/0.3ML SYR SUBCUT SCH (21:00)
[2016-11-01] VITALS (46 sets, daily range): BP systolic 96–135; BP diastolic 52–80
[2016-11-01] MEDS: PIPERACILLIN/TAZ 3.375G PREMIX 50 ML IV SCH ×2 (01:31→09:10)
[2016-11-01] MEDS: IPRATROPIUM/ALBUTEROL 0.5-3(2.5)MG/3ML NEB HHN SCH ×5 (03:50→20:36)
[2016-11-01] MEDS: LACTULOSE 20G/30ML UDC PO SCH ×2 (04:17→08:45)
[2016-11-01] MEDS: NITROGLYCERIN OINT 1GM/INCH UDPKT TD SCH ×3 (05:20→18:00)
[2016-11-01] MEDS: BLOOD SUGAR DIAGNOSTIC STRIP TEST SCH ×3 (05:20→18:23)
[2016-11-01] MEDS: METOCLOPRAMIDE HCL 10MG/2ML VIAL IV SCH ×3 (05:20→18:22)
[2016-11-01 05:32] LABS: BASOPHILS % 0.4 % (0.0-2.0); EOSINOPHILS % 0.9 % (0.0-5.0); HEMOGLOBIN. 9.4 g/dL (14.0-18.0); LYMPHOCYTES % 14.6 % (20.0-50.0); MEAN CORPUSCULAR HEMOGLOBIN 33.7 pg (28.0-32.0); MEAN CORPUSCULAR VOLUME 100.4 fL (80.0-94.0); MEAN PLATELET VOLUME 9.6 fl (7.4-10.4); NEUTROPHILS % 77.1 % (40.0-76.0); PLATELET 82 x1000/uL (130-400); RED BLOOD CELL COUNT 2.79 mill/uL (4.7-6.1); RED CELL DISTRIBUTION WIDTH 14.2 % (11.6-14.6)
[2016-11-01] MEDS: INSULIN LISPRO 100 UNITS/ML SUBCUT SCH ×3 (05:53→18:00)
[2016-11-01] MEDS: ACETAMINOPHEN 650MG/20.3ML UDC PO PRN (05:54)
[2016-11-01 06:04] LABS: CHLORIDE 114 mEq/L (98-107)
[2016-11-01 06:12] LABS: CARBON DIOXIDE 27 mEq/L (21-32); PHOSPHORUS 2.6 mg/dL (2.5-4.9)
[2016-11-01] MEDS: HYDROCORTISONE SOD SUCCINATE 100 MG/2 ML VIAL IV SCH (08:46)
[2016-11-01] MEDS: CALCITRIOL 1MCG/ML AMP IV SCH (08:46)
[2016-11-01] MEDS: FOLIC ACID 1MG TABLET PO SCH (08:46)
[2016-11-01] MEDS: RIFAXIMIN 550 MG TABLET PO SCH ×2 (08:46→21:13)
[2016-11-01] MEDS: PANTOPRAZOLE SODIUM 40 MG/VIAL IV SCH (08:46)
[2016-11-01] MEDS: QUETIAPINE FUMARATE 25MG TABLET PO SCH (08:46)
[2016-11-01] MEDS: ASPIRIN 81MG TABLET NG SCH (08:46)
[2016-11-01] MEDS: FENTANYL CITRATE/PF 1,000 MCG in SODIUM CHLORIDE 0.9% 80 ML IV PRN (08:47)
[2016-11-01 10:13] LABS: BG BASE EXCESS 1.1 mmol/L (-2.0-2.0); BG CARBOXYHEMOGLOBIN 0.3 % (0.5-1.5); BG DEOXYHEMOGLOBIN 2.6 % (0.0-5.0); BG FRACTION INSPIRED OXYGEN 45; BG HCO3 ACT 25.1 mmol/L (22.0-26.0); BG METHEMOGLOBIN 0.2 % (0.0-1.5); BG OXYGEN SATURATION 97.4 % (92.0-98.5); BG OXYHEMOGLOBIN 96.9 % (94.0-97.0); BG PCO2 37.7 mmHg (35.0-45.0); BG PH 7.442 (7.350-7.450); BG PO2 107.1 mmHg (75.0-100.0); BG SAMPLE SITE RIGHT BRACHIAL; BG TIDAL VOLUME(mL) 550 mL; BG TOTAL HEMOGLOBIN 10.2 g/dL (12.0-18.0); BG VENT MODE VENT - A/C; BG VENT RATE 14 set
[2016-11-01] MEDS: ENOXAPARIN 30MG/0.3ML SYR SUBCUT SCH (10:23)
[2016-11-01] MEDS: DEXT 5%/0.2% NACL 1,000 ML IV SCH (10:24)
[2016-11-01] MEDS: LEVOFLOXACIN 500MG PREMIX 100 ML IV SCH (11:25)
[2016-11-01] MEDS: MULTIVITAMINS,THER W-MINERALS TABLET PO SCH (15:16)
[2016-11-01] MEDS: THIAMINE HCL 100MG TABLET PO SCH (15:16)
[2016-11-01 15:32] LABS: T4 FREE 0.51 ng/dL (0.76-1.46)
[2016-11-01 15:52] LABS: FOLIC ACID (FOLATE) SERUM 17.2 ng/mL (>5.38)
[2016-11-01 17:07] LABS: AMMONIA 53 uMol/L (<32)
[2016-11-01] MEDS: LORAZEPAM 2MG/ML CPJ IV PRN (19:46)
[2016-11-01] MEDS ORDERED: AMIODARONE HCL 150 MG in DEXT 5% WATER 100 ML IV NR (21:00)
[2016-11-01] MEDS ORDERED: AMIODARONE HCL 900 MG in DEXT 5% WATER 482 ML IV SCH (21:00)
[2016-11-02] VITALS (48 sets, daily range): BP systolic 95–149; BP diastolic 34–106
[2016-11-02] MEDS: METOCLOPRAMIDE HCL 10MG/2ML VIAL IV SCH ×4 (00:14→18:35)
[2016-11-02] MEDS: BLOOD SUGAR DIAGNOSTIC STRIP TEST SCH ×4 (00:14→18:30)
[2016-11-02] MEDS: IPRATROPIUM/ALBUTEROL 0.5-3(2.5)MG/3ML NEB HHN SCH ×5 (00:26→20:01)
[2016-11-02] MEDS: ACETAMINOPHEN 650MG/20.3ML UDC PO PRN ×2 (00:35→13:04)
[2016-11-02] MEDS: FENTANYL CITRATE/PF 1,000 MCG in SODIUM CHLORIDE 0.9% 80 ML IV PRN ×2 (03:09→22:50)
[2016-11-02] MEDS: LORAZEPAM 2MG/ML CPJ IV PRN ×2 (04:15→22:16)
[2016-11-02] MEDS: INSULIN LISPRO 100 UNITS/ML SUBCUT SCH ×4 (05:32→18:00)
[2016-11-02] MEDS: NITROGLYCERIN OINT 1GM/INCH UDPKT TD SCH ×3 (05:32→21:09)
[2016-11-02 05:40] LABS: BASOPHILS % 0.5 % (0.0-2.0); EOSINOPHILS % 1.2 % (0.0-5.0); HEMATOCRIT. 29.8 % (42.0-52.0); HEMOGLOBIN. 9.6 g/dL (14.0-18.0); LYMPHOCYTES % 19.3 % (20.0-50.0); MEAN CORPUSCULAR VOLUME 102.4 fL (80.0-94.0); MEAN PLATELET VOLUME 9.5 fl (7.4-10.4); MONOCYTES % 7.3 % (2.0-8.0); NEUTROPHILS % 71.7 % (40.0-76.0); PLATELET 77 x1000/uL (130-400); RED BLOOD CELL COUNT 2.91 mill/uL (4.7-6.1); RED CELL DISTRIBUTION WIDTH 14.4 % (11.6-14.6)
[2016-11-02 05:57] LABS: AMMONIA 63 uMol/L (<32)
[2016-11-02 06:10] LABS: CARBON DIOXIDE 28 mEq/L (21-32); CHLORIDE 115 mEq/L (98-107); PHOSPHORUS 2.3 mg/dL (2.5-4.9)
[2016-11-02] MEDS: PANTOPRAZOLE SODIUM 40 MG/VIAL IV SCH (08:06)
[2016-11-02] MEDS: CALCITRIOL 1MCG/ML AMP IV SCH (08:08)
[2016-11-02] MEDS: RIFAXIMIN 550 MG TABLET PO SCH (08:08)
[2016-11-02] MEDS: ENOXAPARIN 30MG/0.3ML SYR SUBCUT SCH ×2 (08:08→21:00)
[2016-11-02] MEDS: FOLIC ACID 1MG TABLET PO SCH (08:08)
[2016-11-02] MEDS: DEXT 5%/0.2% NACL 1,000 ML IV SCH (08:09)
[2016-11-02] MEDS: MULTIVITAMINS,THER W-MINERALS TABLET PO SCH (08:09)
[2016-11-02] MEDS: THIAMINE HCL 100MG TABLET PO SCH (08:09)
[2016-11-02] MEDS: ASPIRIN 81MG TABLET NG SCH (08:09)
[2016-11-02] MEDS ORDERED: HYDROCORTISONE SOD SUCCINATE 100 MG/2 ML VIAL IV SCH (09:00)
[2016-11-02] MEDS: DEXTROSE 5% WATER 1,000 ML IV SCH (09:20)
[2016-11-02] MEDS ORDERED: POTASSIUM PHOS,M-BASIC-D-BASIC 15 MMOL in DEXT 5% WATER 245 ML IV NR (11:00)
[2016-11-02] MEDS: LEVOFLOXACIN 500MG PREMIX 100 ML IV SCH (11:45)
[2016-11-02] MEDS: CARVEDILOL 3.125 MG TABLET PO SCH (21:09)
[2016-11-02] MEDS: MICONAZOLE NITRATE 2% OINT 71GM TOP SCH (21:10)
[2016-11-03] VITALS (47 sets, daily range): BP systolic 92–128; BP diastolic 52–82
[2016-11-03] MEDS: BLOOD SUGAR DIAGNOSTIC STRIP TEST SCH ×4 (00:05→18:00)
[2016-11-03] MEDS: IPRATROPIUM/ALBUTEROL 0.5-3(2.5)MG/3ML NEB HHN SCH ×6 (00:09→20:32)
[2016-11-03] MEDS: INSULIN LISPRO 100 UNITS/ML SUBCUT SCH ×5 (00:27→23:51)
[2016-11-03] MEDS: METOCLOPRAMIDE HCL 10MG/2ML VIAL IV SCH ×5 (00:27→23:51)
[2016-11-03] MEDS: DEXTROSE 5% WATER 1,000 ML IV SCH (02:42)
[2016-11-03 04:48] LABS: BASOPHILS % 0.9 % (0.0-2.0); EOSINOPHILS % 1.5 % (0.0-5.0); HEMATOCRIT. 29.8 % (42.0-52.0); HEMOGLOBIN. 9.7 g/dL (14.0-18.0); LYMPHOCYTES % 18.8 % (20.0-50.0); MEAN CORPUSCULAR HEMOGLOBIN 33.3 pg (28.0-32.0); MEAN CORPUSCULAR VOLUME 101.9 fL (80.0-94.0); MEAN PLATELET VOLUME 10.9 fl (7.4-10.4); MONOCYTES % 6.3 % (2.0-8.0); NEUTROPHILS % 72.5 % (40.0-76.0); PLATELET 85 x1000/uL (130-400); RED BLOOD CELL COUNT 2.93 mill/uL (4.7-6.1); RED CELL DISTRIBUTION WIDTH 14.6 % (11.6-14.6)
[2016-11-03 05:09] LABS: PHOSPHORUS 2.3 mg/dL (2.5-4.9)
[2016-11-03 05:25] LABS: INR 1.5; PARTIAL THROMBOPLASTIN TIME 29.1 sec (24.0-34.0); PROTHROMBIN TIME 15.2 sec
[2016-11-03 07:53] LABS: BG BASE EXCESS 4.1 mmol/L (-2.0-2.0); BG CARBOXYHEMOGLOBIN 0.4 % (0.5-1.5); BG DEOXYHEMOGLOBIN 6.4 % (0.0-5.0); BG HCO3 ACT 27.7 mmol/L (22.0-26.0); BG METHEMOGLOBIN 0.3 % (0.0-1.5); BG OXYGEN SATURATION 93.6 % (92.0-98.5); BG OXYHEMOGLOBIN 92.9 % (94.0-97.0); BG PH 7.481 (7.350-7.450); BG PO2 68.9 mmHg (75.0-100.0); BG SAMPLE SITE RIGHT RADIAL; BG TIDAL VOLUME(mL) 550 mL; BG TOTAL HEMOGLOBIN 10.6 g/dL (12.0-18.0); BG VENT MODE VENT - A/C; BG VENT RATE 14 set
[2016-11-03] MEDS: CARVEDILOL 3.125 MG TABLET PO SCH ×2 (09:00→20:23)
[2016-11-03] MEDS: NITROGLYCERIN OINT 1GM/INCH UDPKT TD SCH ×2 (09:00→20:23)
[2016-11-03] MEDS: MUPIROCIN 2% OINT 22GM TOP SCH (09:30)
[2016-11-03] MEDS: MICONAZOLE NITRATE 2% OINT 71GM TOP SCH ×2 (09:30→21:41)
[2016-11-03] MEDS: MULTIVITAMINS,THER W-MINERALS TABLET PO SCH (09:30)
[2016-11-03] MEDS: ASPIRIN 81MG TABLET NG SCH (09:31)
[2016-11-03] MEDS: THIAMINE HCL 100MG TABLET PO SCH (09:31)
[2016-11-03] MEDS: FOLIC ACID 1MG TABLET PO SCH (09:31)
[2016-11-03] MEDS: CALCITRIOL 1MCG/ML AMP IV SCH (09:32)
[2016-11-03] MEDS: ENOXAPARIN 30MG/0.3ML SYR SUBCUT SCH ×2 (09:38→21:00)
[2016-11-03] MEDS ORDERED: LIDOCAINE HCL/PF 1% 2ML VIAL ONE (09:42)
[2016-11-03] MEDS: FENTANYL CITRATE/PF 1,000 MCG in SODIUM CHLORIDE 0.9% 80 ML IV PRN (10:37)
[2016-11-03] MEDS: LEVOFLOXACIN 500MG PREMIX 100 ML IV SCH (13:03)
[2016-11-03] MEDS ORDERED: POTASSIUM PHOS,M-BASIC-D-BASIC 20 MMOL in DEXT 5% WATER 243.3333 ML IV SCH (14:30)
[2016-11-03] MEDS: FENTANYL CITRATE/PF 1,000 MCG in DEXT 5% WATER 80 ML IV PRN ×2 (14:38→23:05)
[2016-11-04] VITALS (53 sets, daily range): BP systolic 87–161; BP diastolic 33–96
[2016-11-04] MEDS: IPRATROPIUM/ALBUTEROL 0.5-3(2.5)MG/3ML NEB HHN SCH ×6 (00:18→17:04)
[2016-11-04] MEDS: BLOOD SUGAR DIAGNOSTIC STRIP TEST SCH ×4 (00:23→17:31)
[2016-11-04 06:22] LABS: BASOPHILS % 0.7 % (0.0-2.0); EOSINOPHILS % 0.7 % (0.0-5.0); HEMATOCRIT. 33.6 % (42.0-52.0); HEMOGLOBIN. 10.8 g/dL (14.0-18.0); LYMPHOCYTES % 18.5 % (20.0-50.0); MEAN CORPUSCULAR HEMOGLOBIN 33.3 pg (28.0-32.0); MEAN CORPUSCULAR VOLUME 103.5 fL (80.0-94.0); MEAN PLATELET VOLUME 10.2 fl (7.4-10.4); NEUTROPHILS % 73.1 % (40.0-76.0); PLATELET 90 x1000/uL (130-400); RED BLOOD CELL COUNT 3.24 mill/uL (4.7-6.1); RED CELL DISTRIBUTION WIDTH 14.6 % (11.6-14.6)
[2016-11-04] MEDS: METOCLOPRAMIDE HCL 10MG/2ML VIAL IV SCH ×3 (06:39→17:31)
[2016-11-04] MEDS: DEXTROSE 5% WATER 1,000 ML IV SCH (06:40)
[2016-11-04] MEDS: INSULIN LISPRO 100 UNITS/ML SUBCUT SCH ×3 (06:41→17:31)
[2016-11-04 07:07] LABS: CARBON DIOXIDE 31 mEq/L (21-32); CHLORIDE 114 mEq/L (98-107); PHOSPHORUS 3.1 mg/dL (2.5-4.9)
[2016-11-04 07:10] LABS: T4 FREE 0.66 ng/dL (0.76-1.46)
[2016-11-04] MEDS: MIDAZOLAM HCL 100 MG in DEXT 5% WATER 80 ML IV PRN (08:34)
[2016-11-04] MEDS: CARVEDILOL 3.125 MG TABLET PO SCH ×2 (08:48→20:05)
[2016-11-04] MEDS: ENOXAPARIN 30MG/0.3ML SYR SUBCUT SCH ×2 (08:49→21:00)
[2016-11-04] MEDS: NITROGLYCERIN OINT 1GM/INCH UDPKT TD SCH ×2 (08:52→20:05)
[2016-11-04] MEDS: ACETAMINOPHEN 650MG/20.3ML UDC PO PRN (09:02)
[2016-11-04] MEDS: MULTIVITAMINS,THER W-MINERALS TABLET PO SCH (09:03)
[2016-11-04] MEDS: THIAMINE HCL 100MG TABLET PO SCH (09:03)
[2016-11-04] MEDS: ASPIRIN 81MG TABLET NG SCH (09:03)
[2016-11-04] MEDS: FOLIC ACID 1MG TABLET PO SCH (09:03)
[2016-11-04] MEDS: MUPIROCIN 2% OINT 22GM TOP SCH (09:03)
[2016-11-04] MEDS: MICONAZOLE NITRATE 2% OINT 71GM TOP SCH ×2 (09:03→21:23)
[2016-11-04] MEDS: CALCITRIOL 1MCG/ML AMP IV SCH (09:03)
[2016-11-04] MEDS: FENTANYL CITRATE/PF 1,000 MCG in DEXT 5% WATER 80 ML IV PRN ×2 (09:04→20:04)
[2016-11-04 09:32] LABS: BG BASE EXCESS 2.7 mmol/L (-2.0-2.0); BG CARBOXYHEMOGLOBIN 0.2 % (0.5-1.5); BG DEOXYHEMOGLOBIN 0.7 % (0.0-5.0); BG FRACTION INSPIRED OXYGEN 55; BG HCO3 ACT 25.8 mmol/L (22.0-26.0); BG METHEMOGLOBIN 0.3 % (0.0-1.5); BG OXYGEN SATURATION 99.3 % (92.0-98.5); BG OXYHEMOGLOBIN 98.8 % (94.0-97.0); BG PCO2 34.3 mmHg (35.0-45.0); BG PH 7.494 (7.350-7.450); BG PO2 231.4 mmHg (75.0-100.0); BG SAMPLE SITE LEFT BRACHIAL; BG TIDAL VOLUME(mL) 550 mL; BG TOTAL HEMOGLOBIN 11.1 g/dL (12.0-18.0); BG VENT MODE VENT - A/C; BG VENT RATE 14 set
[2016-11-04] MEDS ORDERED: FUROSEMIDE 40MG/4ML VIAL IVP SCH (11:45)
[2016-11-04 12:15] LABS: AMMONIA 52 uMol/L (<32)
[2016-11-04] MEDS: LEVOFLOXACIN 500MG PREMIX 100 ML IV SCH (12:34)
[2016-11-04 15:38] LABS: CLARITY URINE CLEAR (CLEAR); COLOR URINE YELLOW (YELLOW); GLUCOSE URINE NEGATIVE (NEGATIVE); KETONES URINE NEGATIVE (NEGATIVE); LEUKOCYTE ESTERASE URINE TRACE (NEGATIVE); NITRITE URINE NEGATIVE (NEGATIVE); OCCULT BLOOD URINE 1+ (NEGATIVE); PROTEIN URINE NEGATIVE (NEGATIVE); SPECIFIC GRAVITY URINE 1.012 (1.005-1.030); UROBILINOGEN URINE 0.2 E.U./dL (0.2-1.0)
[2016-11-04] MEDS ORDERED: VANCOMYCIN 2,000 MG in DEXT 5% WATER 500 ML IV SCH (16:00)
[2016-11-04] MEDS: CEFEPIME 1,000 MG in DEXTROSE 5% WATER 50 ML IV SCH (17:31)
[2016-11-05] VITALS (58 sets, daily range): BP systolic 55–117; BP diastolic 37–94
[2016-11-05] MEDS: IPRATROPIUM/ALBUTEROL 0.5-3(2.5)MG/3ML NEB HHN SCH ×6 (00:20→20:40)
[2016-11-05] MEDS: BLOOD SUGAR DIAGNOSTIC STRIP TEST SCH ×4 (00:58→18:38)
[2016-11-05] MEDS: METOCLOPRAMIDE HCL 10MG/2ML VIAL IV SCH ×4 (00:59→17:18)
[2016-11-05] MEDS: MIDAZOLAM HCL 100 MG in DEXT 5% WATER 80 ML IV PRN (03:24)
[2016-11-05] MEDS: CEFEPIME 1,000 MG in DEXTROSE 5% WATER 50 ML IV SCH ×2 (05:18→17:18)
[2016-11-05] MEDS: VANCOMYCIN 1 G PREMIX 200 ML IV SCH (05:18)
[2016-11-05] MEDS: ACETAMINOPHEN 650MG/20.3ML UDC PO PRN (05:18)
[2016-11-05 05:28] LABS: BASOPHILS % 0.9 % (0.0-2.0); EOSINOPHILS % 1.6 % (0.0-5.0); HEMATOCRIT. 28.7 % (42.0-52.0); HEMOGLOBIN. 9.5 g/dL (14.0-18.0); LYMPHOCYTES % 16.5 % (20.0-50.0); MEAN CORPUSCULAR HEMOGLOBIN 33.5 pg (28.0-32.0); MEAN CORPUSCULAR VOLUME 101.3 fL (80.0-94.0); MEAN PLATELET VOLUME 10.8 fl (7.4-10.4); MONOCYTES % 5.8 % (2.0-8.0); NEUTROPHILS % 75.2 % (40.0-76.0); PLATELET 69 x1000/uL (130-400); RED BLOOD CELL COUNT 2.83 mill/uL (4.7-6.1); RED CELL DISTRIBUTION WIDTH 14.5 % (11.6-14.6)
[2016-11-05 05:42] LABS: CARBON DIOXIDE 29 mEq/L (21-32); CHLORIDE 113 mEq/L (98-107); PHOSPHORUS 2.8 mg/dL (2.5-4.9)
[2016-11-05] MEDS: INSULIN LISPRO 100 UNITS/ML SUBCUT SCH ×4 (06:00→18:00)
[2016-11-05 07:43] LABS: BG BASE EXCESS 3.8 mmol/L (-2.0-2.0); BG CARBOXYHEMOGLOBIN 0.7 % (0.5-1.5); BG DEOXYHEMOGLOBIN 7.4 % (0.0-5.0); BG FRACTION INSPIRED OXYGEN 30; BG HCO3 ACT 27.5 mmol/L (22.0-26.0); BG METHEMOGLOBIN 0.2 % (0.0-1.5); BG OXYGEN SATURATION 92.5 % (92.0-98.5); BG OXYHEMOGLOBIN 91.7 % (94.0-97.0); BG PCO2 37.9 mmHg (35.0-45.0); BG PH 7.478 (7.350-7.450); BG PO2 64.2 mmHg (75.0-100.0); BG SAMPLE SITE RIGHT RADIAL; BG TIDAL VOLUME(mL) 550 mL; BG TOTAL HEMOGLOBIN 12.2 g/dL (12.0-18.0); BG VENT MODE VENT - A/C; BG VENT RATE 14 set
[2016-11-05] MEDS: FENTANYL CITRATE/PF 1,000 MCG in DEXT 5% WATER 80 ML IV PRN ×2 (08:30→20:25)
[2016-11-05] MEDS: CARVEDILOL 3.125 MG TABLET PO SCH ×2 (09:00→20:41)
[2016-11-05] MEDS: NITROGLYCERIN OINT 1GM/INCH UDPKT TD SCH ×2 (09:00→20:41)
[2016-11-05] MEDS: THIAMINE HCL 100MG TABLET PO SCH (09:31)
[2016-11-05] MEDS: MULTIVITAMINS,THER W-MINERALS TABLET PO SCH (09:31)
[2016-11-05] MEDS: FOLIC ACID 1MG TABLET PO SCH (09:31)
[2016-11-05] MEDS: CALCITRIOL 1MCG/ML AMP IV SCH (09:33)
[2016-11-05] MEDS: MICONAZOLE NITRATE 2% OINT 71GM TOP SCH ×2 (09:37→20:45)
[2016-11-05] MEDS: MUPIROCIN 2% OINT 22GM TOP SCH (09:38)
[2016-11-05] MEDS: DEXTROSE 5% WATER 1,000 ML IV SCH ×2 (09:59→18:39)
[2016-11-05] MEDS: FUROSEMIDE 20MG/2ML VIAL IVP SCH ×2 (12:14→17:17)
[2016-11-05] MEDS ORDERED: VECURONIUM BROMIDE 10 MG/VIAL IV ONE ×2 (17:52→18:11)
[2016-11-05] MEDS ORDERED: SODIUM CHLORIDE 0.9% 10ML VIAL ONE (17:52)
[2016-11-05] MEDS ORDERED: PROPOFOL 200MG/20ML VIAL IV ONE (18:11)
[2016-11-05] MEDS: PHENYLEPHRINE 80 MG in SODIUM CHLORIDE 0.9% 492 ML IV PRN (23:45)
[2016-11-06] VITALS (94 sets, daily range): BP systolic 79–145; BP diastolic 32–123
[2016-11-06] MEDS: IPRATROPIUM/ALBUTEROL 0.5-3(2.5)MG/3ML NEB HHN SCH ×6 (00:28→20:00)
[2016-11-06] MEDS: METOCLOPRAMIDE HCL 10MG/2ML VIAL IV SCH ×5 (00:40→23:54)
[2016-11-06] MEDS: VANCOMYCIN 1 G PREMIX 200 ML IV SCH ×2 (00:40→17:35)
[2016-11-06] MEDS: BLOOD SUGAR DIAGNOSTIC STRIP TEST SCH ×5 (00:40→23:55)
[2016-11-06] MEDS ORDERED: DIGOXIN 500MCG/2ML AMP IV NR ×3 (01:30→22:00)
[2016-11-06] MEDS: MIDAZOLAM HCL 100 MG in DEXT 5% WATER 80 ML IV PRN (02:43)
[2016-11-06] MEDS: NOREPINEPHRINE 32 MG in SODIUM CHLORIDE 0.9% 468 ML IV PRN (03:45)
[2016-11-06] MEDS: DEXTROSE 5% WATER 1,000 ML IV SCH (03:55)
[2016-11-06] MEDS: CEFEPIME 1,000 MG in DEXTROSE 5% WATER 50 ML IV SCH ×2 (05:34→17:36)
[2016-11-06] MEDS: INSULIN LISPRO 100 UNITS/ML SUBCUT SCH ×5 (05:34→23:54)
[2016-11-06 06:00] LABS: HEMATOCRIT. 31.4 % (42.0-52.0); HEMOGLOBIN. 10.2 g/dL (14.0-18.0); MEAN CORPUSCULAR HEMOGLOBIN 33.7 pg (28.0-32.0); MEAN CORPUSCULAR VOLUME 103.2 fL (80.0-94.0); MEAN PLATELET VOLUME 11.7 fl (7.4-10.4); PLATELET 93 x1000/uL (130-400); RED BLOOD CELL COUNT 3.04 mill/uL (4.7-6.1); RED CELL DISTRIBUTION WIDTH 14.7 % (11.6-14.6)
[2016-11-06] MEDS: FENTANYL CITRATE/PF 1,000 MCG in DEXT 5% WATER 80 ML IV PRN ×2 (06:15→18:43)
[2016-11-06] MEDS: FUROSEMIDE 20MG/2ML VIAL IVP SCH ×2 (06:15→17:35)
[2016-11-06 06:28] LABS: CARBON DIOXIDE 29 mEq/L (21-32); CHLORIDE 111 mEq/L (98-107)
[2016-11-06] MEDS: CARVEDILOL 3.125 MG TABLET PO SCH ×2 (09:00→20:02)
[2016-11-06] MEDS: NITROGLYCERIN OINT 1GM/INCH UDPKT TD SCH ×2 (09:00→20:03)
[2016-11-06] MEDS: THIAMINE HCL 100MG TABLET PO SCH (09:35)
[2016-11-06] MEDS: MULTIVITAMINS,THER W-MINERALS TABLET PO SCH (09:35)
[2016-11-06] MEDS: FOLIC ACID 1MG TABLET PO SCH (09:35)
[2016-11-06] MEDS: CALCITRIOL 1MCG/ML AMP IV SCH (09:36)
[2016-11-06] MEDS: MICONAZOLE NITRATE 2% OINT 71GM TOP SCH ×2 (09:38→20:03)
[2016-11-06] MEDS: MUPIROCIN 2% OINT 22GM TOP SCH (09:39)
[2016-11-06 14:34] LABS: NUCLEATED RED BLOOD CELLS 22 /100 WBC; PLATELET ESTIMATE SLIGHTLY DECREASED
[2016-11-06 15:54] LABS: AMMONIA 49 uMol/L (<32)
[2016-11-06] MEDS: LORAZEPAM 2MG/ML CPJ IV PRN ×2 (17:36→21:58)
[2016-11-07] VITALS (47 sets, daily range): BP systolic 72–127; BP diastolic 46–117
[2016-11-07] MEDS: IPRATROPIUM/ALBUTEROL 0.5-3(2.5)MG/3ML NEB HHN SCH ×6 (00:15→20:22)
[2016-11-07] MEDS: LORAZEPAM 2MG/ML CPJ IV PRN (05:14)
[2016-11-07] MEDS: METOCLOPRAMIDE HCL 10MG/2ML VIAL IV SCH ×3 (05:14→17:09)
[2016-11-07] MEDS: BLOOD SUGAR DIAGNOSTIC STRIP TEST SCH ×3 (05:15→17:00)
[2016-11-07] MEDS: INSULIN LISPRO 100 UNITS/ML SUBCUT SCH ×3 (05:15→17:13)
[2016-11-07] MEDS: CEFEPIME 1,000 MG in DEXTROSE 5% WATER 50 ML IV SCH ×2 (05:16→17:10)
[2016-11-07 06:26] LABS: BASOPHILS % 1.3 % (0.0-2.0); EOSINOPHILS % 1.7 % (0.0-5.0); HEMATOCRIT. 28.1 % (42.0-52.0); HEMOGLOBIN. 9.1 g/dL (14.0-18.0); LYMPHOCYTES % 20.3 % (20.0-50.0); MEAN CORPUSCULAR HEMOGLOBIN 33.5 pg (28.0-32.0); MEAN CORPUSCULAR VOLUME 103.7 fL (80.0-94.0); MEAN PLATELET VOLUME 11.8 fl (7.4-10.4); MONOCYTES % 5.7 % (2.0-8.0); PLATELET 73 x1000/uL (130-400); RED BLOOD CELL COUNT 2.71 mill/uL (4.7-6.1); RED CELL DISTRIBUTION WIDTH 14.9 % (11.6-14.6)
[2016-11-07 06:29] LABS: INR 1.4; PARTIAL THROMBOPLASTIN TIME 32.1 sec (24.0-34.0)
[2016-11-07 06:35] LABS: CARBON DIOXIDE 28 mEq/L (21-32); CHLORIDE 111 mEq/L (98-107); PHOSPHORUS 2.4 mg/dL (2.5-4.9)
[2016-11-07] MEDS: DEXTROSE 5% WATER 1,000 ML IV SCH (06:40)
[2016-11-07] MEDS: FUROSEMIDE 20MG/2ML VIAL IVP SCH (06:42)
[2016-11-07] MEDS: FENTANYL CITRATE/PF 1,000 MCG in DEXT 5% WATER 80 ML IV PRN (06:57)
[2016-11-07 08:30] LABS: BG BASE EXCESS 2.8 mmol/L (-2.0-2.0); BG CARBOXYHEMOGLOBIN 0.3 % (0.5-1.5); BG DEOXYHEMOGLOBIN 1.3 % (0.0-5.0); BG FRACTION INSPIRED OXYGEN 40; BG METHEMOGLOBIN 0.1 % (0.0-1.5); BG OXYGEN SATURATION 98.7 % (92.0-98.5); BG OXYHEMOGLOBIN 98.3 % (94.0-97.0); BG PCO2 29.8 mmHg (35.0-45.0); BG PH 7.541 (7.350-7.450); BG PO2 169.3 mmHg (75.0-100.0); BG SAMPLE SITE RIGHT RADIAL; BG TIDAL VOLUME(mL) 550 mL; BG VENT MODE VENT - A/C; BG VENT RATE 14 set
[2016-11-07] MEDS: ASPIRIN 81MG TABLET NG SCH (09:00)
[2016-11-07] MEDS: NITROGLYCERIN OINT 1GM/INCH UDPKT TD SCH ×2 (09:00→20:12)
[2016-11-07] MEDS: FOLIC ACID 1MG TABLET PO SCH (09:00)
[2016-11-07] MEDS ORDERED: LACTULOSE 20G/30ML UDC PO SCH (09:00)
[2016-11-07] MEDS: MULTIVITAMINS,THER W-MINERALS TABLET PO SCH (09:00)
[2016-11-07] MEDS: CARVEDILOL 3.125 MG TABLET PO SCH ×2 (09:00→20:12)
[2016-11-07] MEDS: THIAMINE HCL 100MG TABLET PO SCH (09:00)
[2016-11-07] MEDS: MUPIROCIN 2% OINT 22GM TOP SCH (09:40)
[2016-11-07] MEDS: CALCITRIOL 1MCG/ML AMP IV SCH (09:40)
[2016-11-07] MEDS: MICONAZOLE NITRATE 2% OINT 71GM TOP SCH ×2 (09:41→20:12)
[2016-11-07] MEDS ORDERED: SIMETHICONE 40 MG/0.6 ML 30ML ONE (10:22)
[2016-11-07] MEDS ORDERED: FENTANYL CITRATE/PF 50MCG/ML 2ML VIAL ONE (10:22)
[2016-11-07] MEDS ORDERED: MIDAZOLAM HCL 5 MG/5 ML VIAL ONE (10:23)
[2016-11-07] MEDS: VANCOMYCIN 1 G PREMIX 200 ML IV SCH (13:00)
[2016-11-07] MEDS: FUROSEMIDE 40MG/4ML VIAL IV SCH (17:10)
[2016-11-07] MEDS: RIFAXIMIN 550 MG TABLET PO SCH (22:06)
[2016-11-08] VITALS (50 sets, daily range): BP systolic 65–137; BP diastolic 28–88
[2016-11-08] MEDS: IPRATROPIUM/ALBUTEROL 0.5-3(2.5)MG/3ML NEB HHN SCH ×6 (00:02→20:04)
[2016-11-08] MEDS: METOCLOPRAMIDE HCL 10MG/2ML VIAL IV SCH ×4 (00:11→17:36)
[2016-11-08] MEDS: BLOOD SUGAR DIAGNOSTIC STRIP TEST SCH ×4 (00:11→18:00)
[2016-11-08] MEDS: INSULIN LISPRO 100 UNITS/ML SUBCUT SCH ×4 (00:21→17:55)
[2016-11-08] MEDS: LORAZEPAM 2MG/ML CPJ IV PRN (04:32)
[2016-11-08 05:31] LABS: BASOPHILS % 1.3 % (0.0-2.0); EOSINOPHILS % 1.6 % (0.0-5.0); HEMATOCRIT. 26.7 % (42.0-52.0); LYMPHOCYTES % 18.4 % (20.0-50.0); MEAN CORPUSCULAR VOLUME 101.3 fL (80.0-94.0); MEAN PLATELET VOLUME 11.5 fl (7.4-10.4); MONOCYTES % 7.3 % (2.0-8.0); NEUTROPHILS % 71.4 % (40.0-76.0); PLATELET 77 x1000/uL (130-400); RED BLOOD CELL COUNT 2.64 mill/uL (4.7-6.1); RED CELL DISTRIBUTION WIDTH 14.8 % (11.6-14.6)
[2016-11-08 05:43] LABS: CARBON DIOXIDE 29 mEq/L (21-32); CHLORIDE 109 mEq/L (98-107); PHOSPHORUS 2.3 mg/dL (2.5-4.9)
[2016-11-08] MEDS: VANCOMYCIN 1 G PREMIX 200 ML IV SCH (06:13)
[2016-11-08] MEDS: CEFEPIME 1,000 MG in DEXTROSE 5% WATER 50 ML IV SCH ×2 (06:13→17:36)
[2016-11-08] MEDS: FUROSEMIDE 40MG/4ML VIAL IV SCH ×2 (06:15→17:36)
[2016-11-08] MEDS ORDERED: ESMOLOL 2500MG PREMIX 250 ML IV PRN (09:00)
[2016-11-08] MEDS: NITROGLYCERIN OINT 1GM/INCH UDPKT TD SCH ×2 (09:00→21:00)
[2016-11-08] MEDS: CARVEDILOL 3.125 MG TABLET PO SCH ×2 (09:00→21:00)
[2016-11-08] MEDS: ASPIRIN 81MG TABLET NG SCH (09:20)
[2016-11-08] MEDS: THIAMINE HCL 100MG TABLET PO SCH (09:20)
[2016-11-08] MEDS: MULTIVITAMINS,THER W-MINERALS TABLET PO SCH (09:20)
[2016-11-08] MEDS: RIFAXIMIN 550 MG TABLET PO SCH ×2 (09:20→21:42)
[2016-11-08] MEDS: FOLIC ACID 1MG TABLET PO SCH (09:20)
[2016-11-08] MEDS: CALCITRIOL 1MCG/ML AMP IV SCH (09:21)
[2016-11-08] MEDS: MORPHINE SULFATE 2 MG/ML CPJ (NOT FOR IM USE) IV PRN ×4 (09:21→21:43)
[2016-11-08] MEDS: MUPIROCIN 2% OINT 22GM TOP SCH (09:30)
[2016-11-08] MEDS: MICONAZOLE NITRATE 2% OINT 71GM TOP SCH (09:31)
[2016-11-08] MEDS: POTASSIUM CHLORIDE 20MEQ/PACKET PO SCH ×2 (10:40→21:42)
[2016-11-08 11:15] LABS: BG BASE EXCESS 3.8 mmol/L (-2.0-2.0); BG CARBOXYHEMOGLOBIN 0.3 % (0.5-1.5); BG DEOXYHEMOGLOBIN 1.2 % (0.0-5.0); BG FRACTION INSPIRED OXYGEN 40; BG HCO3 ACT 25.6 mmol/L (22.0-26.0); BG METHEMOGLOBIN 0.3 % (0.0-1.5); BG OXYGEN SATURATION 98.8 % (92.0-98.5); BG OXYHEMOGLOBIN 98.2 % (94.0-97.0); BG PCO2 29.1 mmHg (35.0-45.0); BG PH 7.563 (7.350-7.450); BG PO2 159.6 mmHg (75.0-100.0); BG SAMPLE SITE RIGHT RADIAL; BG TIDAL VOLUME(mL) 550 mL; BG VENT MODE VENT - A/C; BG VENT RATE 14 set
[2016-11-09] VITALS (43 sets, daily range): BP systolic 47–161; BP diastolic 24–124
[2016-11-09] MEDS: IPRATROPIUM/ALBUTEROL 0.5-3(2.5)MG/3ML NEB HHN SCH ×6 (00:06→20:15)
[2016-11-09] MEDS: VANCOMYCIN 1 G PREMIX 200 ML IV SCH ×2 (00:59→17:14)
[2016-11-09] MEDS: METOCLOPRAMIDE HCL 10MG/2ML VIAL IV SCH ×5 (00:59→23:53)
[2016-11-09] MEDS: BLOOD SUGAR DIAGNOSTIC STRIP TEST SCH ×5 (00:59→23:53)
[2016-11-09] MEDS: MORPHINE SULFATE 2 MG/ML CPJ (NOT FOR IM USE) IV PRN ×3 (01:01→17:06)
[2016-11-09] MEDS: LORAZEPAM 2MG/ML CPJ IV PRN ×6 (03:02→23:53)
[2016-11-09 05:25] LABS: HEMATOCRIT. 27.4 % (42.0-52.0); MEAN CORPUSCULAR HEMOGLOBIN 33.9 pg (28.0-32.0); MEAN CORPUSCULAR VOLUME 102.9 fL (80.0-94.0); RED BLOOD CELL COUNT 2.67 mill/uL (4.7-6.1); RED CELL DISTRIBUTION WIDTH 14.9 % (11.6-14.6)
[2016-11-09 05:38] LABS: CARBON DIOXIDE 27 mEq/L (21-32); CHLORIDE 107 mEq/L (98-107); PHOSPHORUS 2.4 mg/dL (2.5-4.9)
[2016-11-09] MEDS: INSULIN LISPRO 100 UNITS/ML SUBCUT SCH ×4 (06:00→17:23)
[2016-11-09] MEDS: CEFEPIME 1,000 MG in DEXTROSE 5% WATER 50 ML IV SCH ×2 (06:04→17:05)
[2016-11-09 08:23] LABS: NUCLEATED RED BLOOD CELLS 12 /100 WBC
[2016-11-09 08:24] LABS: PLATELET ESTIMATE DECREASED
[2016-11-09 08:26] LABS: PLATELET 67 x1000/uL (130-400)
[2016-11-09] MEDS: FOLIC ACID 1MG TABLET PO SCH (08:43)
[2016-11-09] MEDS: THIAMINE HCL 100MG TABLET PO SCH (08:43)
[2016-11-09] MEDS: RIFAXIMIN 550 MG TABLET PO SCH ×2 (08:43→21:07)
[2016-11-09] MEDS: NITROGLYCERIN OINT 1GM/INCH UDPKT TD SCH ×2 (08:43→21:00)
[2016-11-09] MEDS: MULTIVITAMINS,THER W-MINERALS TABLET PO SCH (08:43)
[2016-11-09] MEDS: POTASSIUM CHLORIDE 20MEQ/PACKET PO SCH ×2 (08:43→21:08)
[2016-11-09] MEDS: ASPIRIN 81MG TABLET NG SCH (08:43)
[2016-11-09] MEDS: FUROSEMIDE 40MG/4ML VIAL IV SCH (08:44)
[2016-11-09] MEDS: CALCITRIOL 1MCG/ML AMP IV SCH (08:44)
[2016-11-09] MEDS: CARVEDILOL 3.125 MG TABLET PO SCH ×2 (08:45→21:00)
[2016-11-09] MEDS: MUPIROCIN 2% OINT 22GM TOP SCH (08:45)
[2016-11-09] MEDS ORDERED: FUROSEMIDE 100MG/10ML VIAL IVP SCH (09:00)
[2016-11-09] MEDS ORDERED: FUROSEMIDE 40MG/4ML VIAL IVP NR (09:15)
[2016-11-09] MEDS ORDERED: POTASSIUM PHOS,M-BASIC-D-BASIC 15 MMOL in DEXT 5% WATER 245 ML IV NR (11:00)
[2016-11-09] MEDS: ACETAMINOPHEN 650MG/20.3ML UDC PO PRN (14:19)
[2016-11-09] MEDS ORDERED: FUROSEMIDE 40MG/4ML VIAL IVP SCH (21:00)
[2016-11-10] VITALS (52 sets, daily range): BP systolic 65–149; BP diastolic 27–111
[2016-11-10] MEDS: INSULIN LISPRO 100 UNITS/ML SUBCUT SCH ×4 (00:13→17:22)
[2016-11-10] MEDS: MORPHINE SULFATE 2 MG/ML CPJ (NOT FOR IM USE) IV PRN ×3 (00:49→09:01)
[2016-11-10] MEDS: LORAZEPAM 2MG/ML CPJ IV PRN ×3 (03:03→08:59)
[2016-11-10] MEDS: IPRATROPIUM/ALBUTEROL 0.5-3(2.5)MG/3ML NEB HHN SCH ×7 (04:07→23:43)
[2016-11-10] MEDS: CEFEPIME 1,000 MG in DEXTROSE 5% WATER 50 ML IV SCH ×2 (05:09→17:28)
[2016-11-10] MEDS: METOCLOPRAMIDE HCL 10MG/2ML VIAL IV SCH ×4 (05:09→23:52)
[2016-11-10 05:35] LABS: BASOPHILS % 1.2 % (0.0-2.0); EOSINOPHILS % 1.3 % (0.0-5.0); HEMATOCRIT. 28.1 % (42.0-52.0); HEMOGLOBIN. 9.3 g/dL (14.0-18.0); LYMPHOCYTES % 21.5 % (20.0-50.0); MEAN CORPUSCULAR HEMOGLOBIN 33.6 pg (28.0-32.0); MEAN CORPUSCULAR VOLUME 101.7 fL (80.0-94.0); MEAN PLATELET VOLUME 11.3 fl (7.4-10.4); PLATELET 90 x1000/uL (130-400); RED BLOOD CELL COUNT 2.77 mill/uL (4.7-6.1); RED CELL DISTRIBUTION WIDTH 14.9 % (11.6-14.6)
[2016-11-10] MEDS: BLOOD SUGAR DIAGNOSTIC STRIP TEST SCH ×4 (06:51→23:52)
[2016-11-10 07:40] LABS: CHLORIDE 106 mEq/L (98-107)
[2016-11-10 08:19] LABS: CARBON DIOXIDE 26 mEq/L (21-32); PHOSPHORUS 3.1 mg/dL (2.5-4.9)
[2016-11-10] MEDS: CALCITRIOL 1MCG/ML AMP IV SCH (08:58)
[2016-11-10] MEDS: POTASSIUM CHLORIDE 20MEQ/PACKET PO SCH ×2 (08:59→20:56)
[2016-11-10] MEDS: FOLIC ACID 1MG TABLET PO SCH (08:59)
[2016-11-10] MEDS: MULTIVITAMINS,THER W-MINERALS TABLET PO SCH (08:59)
[2016-11-10] MEDS: RIFAXIMIN 550 MG TABLET PO SCH ×2 (08:59→20:56)
[2016-11-10] MEDS: MUPIROCIN 2% OINT 22GM TOP SCH (08:59)
[2016-11-10] MEDS: ASPIRIN 81MG TABLET NG SCH (08:59)
[2016-11-10] MEDS ORDERED: FUROSEMIDE 100MG/10ML VIAL IVP SCH (09:00)
[2016-11-10] MEDS: NITROGLYCERIN OINT 1GM/INCH UDPKT TD SCH ×2 (09:01→20:57)
[2016-11-10] MEDS: CARVEDILOL 3.125 MG TABLET PO SCH ×2 (09:02→20:57)
[2016-11-10] MEDS: THIAMINE HCL 100MG TABLET PO SCH (09:04)
[2016-11-10] MEDS: FUROSEMIDE 40MG/4ML VIAL IVP SCH (17:28)
[2016-11-10] MEDS: VANCOMYCIN 1 G PREMIX 200 ML IV SCH (20:43)
[2016-11-11] VITALS (44 sets, daily range): BP systolic 90–153; BP diastolic 18–106
[2016-11-11] MEDS: INSULIN LISPRO 100 UNITS/ML SUBCUT SCH ×5 (00:32→23:39)
[2016-11-11] MEDS: IPRATROPIUM/ALBUTEROL 0.5-3(2.5)MG/3ML NEB HHN SCH ×5 (03:56→20:38)
[2016-11-11] MEDS: CEFEPIME 1,000 MG in DEXTROSE 5% WATER 50 ML IV SCH ×2 (05:13→18:22)
[2016-11-11] MEDS: METOCLOPRAMIDE HCL 10MG/2ML VIAL IV SCH ×4 (05:13→23:35)
[2016-11-11] MEDS: BLOOD SUGAR DIAGNOSTIC STRIP TEST SCH ×3 (05:28→18:14)
[2016-11-11 06:05] LABS: BASOPHILS % 1.5 % (0.0-2.0); EOSINOPHILS % 1.2 % (0.0-5.0); HEMATOCRIT. 28.6 % (42.0-52.0); HEMOGLOBIN. 9.4 g/dL (14.0-18.0); LYMPHOCYTES % 20.3 % (20.0-50.0); MEAN CORPUSCULAR HEMOGLOBIN 33.8 pg (28.0-32.0); MEAN CORPUSCULAR VOLUME 102.9 fL (80.0-94.0); MEAN PLATELET VOLUME 12.2 fl (7.4-10.4); PLATELET 107 x1000/uL (130-400); RED BLOOD CELL COUNT 2.78 mill/uL (4.7-6.1); RED CELL DISTRIBUTION WIDTH 15.6 % (11.6-14.6)
[2016-11-11 07:08] LABS: PHOSPHORUS 4.1 mg/dL (2.5-4.9)
[2016-11-11] MEDS: FUROSEMIDE 40MG/4ML VIAL IVP SCH (08:14)
[2016-11-11] MEDS: RIFAXIMIN 550 MG TABLET PO SCH ×2 (08:14→20:19)
[2016-11-11] MEDS: CALCITRIOL 1MCG/ML AMP IV SCH (08:14)
[2016-11-11] MEDS: NITROGLYCERIN OINT 1GM/INCH UDPKT TD SCH ×2 (08:15→21:00)
[2016-11-11] MEDS: MULTIVITAMINS,THER W-MINERALS TABLET PO SCH (08:15)
[2016-11-11] MEDS: POTASSIUM CHLORIDE 20MEQ/PACKET PO SCH ×2 (08:15→20:19)
[2016-11-11] MEDS: THIAMINE HCL 100MG TABLET PO SCH (08:15)
[2016-11-11] MEDS: FOLIC ACID 1MG TABLET PO SCH (08:15)
[2016-11-11] MEDS: CARVEDILOL 3.125 MG TABLET PO SCH ×2 (08:15→21:20)
[2016-11-11] MEDS: ASPIRIN 81MG TABLET NG SCH (08:15)
[2016-11-11 08:51] LABS: BG BASE EXCESS 1.9 mmol/L (-2.0-2.0); BG CARBOXYHEMOGLOBIN 0.1 % (0.5-1.5); BG DEOXYHEMOGLOBIN 2.1 % (0.0-5.0); BG FRACTION INSPIRED OXYGEN 40; BG HCO3 ACT 23.8 mmol/L (22.0-26.0); BG METHEMOGLOBIN 0.4 % (0.0-1.5); BG OXYGEN SATURATION 97.9 % (92.0-98.5); BG OXYHEMOGLOBIN 97.4 % (94.0-97.0); BG PH 7.548 (7.350-7.450); BG SAMPLE SITE RIGHT RADIAL; BG TIDAL VOLUME(mL) 550 mL; BG TOTAL HEMOGLOBIN 9.7 g/dL (12.0-18.0); BG VENT MODE VENT - A/C; BG VENT RATE 14 set
[2016-11-11] MEDS: MUPIROCIN 2% OINT 22GM TOP SCH (10:05)
[2016-11-11] MEDS: METRONIDAZOLE 500 MG PREMIX 100 ML IV SCH ×2 (12:32→19:59)
[2016-11-11] MEDS: MORPHINE SULFATE 2 MG/ML CPJ (NOT FOR IM USE) IV PRN (20:19)
[2016-11-11] MEDS: VANCOMYCIN 1 G PREMIX 200 ML IV SCH (21:18)
[2016-11-11] MEDS: ACETAMINOPHEN 650MG/20.3ML UDC PO PRN (21:20)
[2016-11-12] VITALS (28 sets, daily range): BP systolic 89–134; BP diastolic 34–111
[2016-11-12] MEDS: BLOOD SUGAR DIAGNOSTIC STRIP TEST SCH ×4 (00:02→18:26)
[2016-11-12] MEDS: IPRATROPIUM/ALBUTEROL 0.5-3(2.5)MG/3ML NEB HHN SCH ×6 (00:20→19:50)
[2016-11-12] MEDS: ACETAMINOPHEN 650MG/20.3ML UDC PO PRN ×2 (02:45→21:04)
[2016-11-12] MEDS: METRONIDAZOLE 500 MG PREMIX 100 ML IV SCH ×3 (03:37→21:03)
[2016-11-12] MEDS: METOCLOPRAMIDE HCL 10MG/2ML VIAL IV SCH ×3 (05:20→18:15)
[2016-11-12] MEDS: CEFEPIME 1,000 MG in DEXTROSE 5% WATER 50 ML IV SCH ×2 (05:20→18:12)
[2016-11-12] MEDS: INSULIN LISPRO 100 UNITS/ML SUBCUT SCH ×3 (05:33→18:31)
[2016-11-12 05:34] LABS: EOSINOPHILS % 1.5 % (0.0-5.0); HEMATOCRIT. 28.8 % (42.0-52.0); HEMOGLOBIN. 9.3 g/dL (14.0-18.0); LYMPHOCYTES % 20.1 % (20.0-50.0); MEAN CORPUSCULAR VOLUME 105.6 fL (80.0-94.0); MEAN PLATELET VOLUME 11.9 fl (7.4-10.4); MONOCYTES % 6.2 % (2.0-8.0); NEUTROPHILS % 71.2 % (40.0-76.0); PLATELET 93 x1000/uL (130-400); RED BLOOD CELL COUNT 2.73 mill/uL (4.7-6.1); RED CELL DISTRIBUTION WIDTH 16.7 % (11.6-14.6)
[2016-11-12 06:01] LABS: CARBON DIOXIDE 21 mEq/L (21-32); CHLORIDE 107 mEq/L (98-107); PHOSPHORUS 4.5 mg/dL (2.5-4.9)
[2016-11-12 08:43] LABS: BG BASE EXCESS 0.3 mmol/L (-2.0-2.0); BG CARBOXYHEMOGLOBIN 0.3 % (0.5-1.5); BG DEOXYHEMOGLOBIN 1.3 % (0.0-5.0); BG FRACTION INSPIRED OXYGEN 40; BG HCO3 ACT 22.5 mmol/L (22.0-26.0); BG METHEMOGLOBIN 0.4 % (0.0-1.5); BG OXYGEN SATURATION 98.7 % (92.0-98.5); BG PCO2 28.2 mmHg (35.0-45.0); BG PH 7.519 (7.350-7.450); BG PO2 157.5 mmHg (75.0-100.0); BG SAMPLE SITE RIGHT RADIAL; BG TIDAL VOLUME(mL) 550 mL; BG TOTAL HEMOGLOBIN 10.3 g/dL (12.0-18.0); BG VENT MODE VENT - A/C; BG VENT RATE 12 set
[2016-11-12] MEDS: ASPIRIN 81MG TABLET NG SCH (08:49)
[2016-11-12] MEDS: THIAMINE HCL 100MG TABLET PO SCH (08:49)
[2016-11-12] MEDS: CALCITRIOL 1MCG/ML AMP IV SCH (08:49)
[2016-11-12] MEDS: FOLIC ACID 1MG TABLET PO SCH (08:49)
[2016-11-12] MEDS: POTASSIUM CHLORIDE 20MEQ/PACKET PO SCH ×2 (08:49→21:00)
[2016-11-12] MEDS: MULTIVITAMINS,THER W-MINERALS TABLET PO SCH (08:49)
[2016-11-12] MEDS: RIFAXIMIN 550 MG TABLET PO SCH ×2 (08:49→23:01)
[2016-11-12] MEDS: NITROGLYCERIN OINT 1GM/INCH UDPKT TD SCH ×2 (08:50→21:00)
[2016-11-12] MEDS: CARVEDILOL 3.125 MG TABLET PO SCH ×2 (08:50→21:05)
[2016-11-12] MEDS: MUPIROCIN 2% OINT 22GM TOP SCH (08:51)
[2016-11-12 10:24] LABS: AMMONIA 52 uMol/L (<32)
[2016-11-12] MEDS ORDERED: SODIUM POLYSTYRENE SULFONATE 15 G/60 ML BOT GT NR (12:30)
[2016-11-12] MEDS: LACTULOSE 20G/30ML UDC PO SCH ×2 (15:06→21:04)
[2016-11-12] MEDS: DIPHENHYDRAMINE 50MG/ML VIAL IV PRN (23:01)
[2016-11-13] VITALS (13 sets, daily range): BP systolic 81–125; BP diastolic 41–95
[2016-11-13] MEDS: IPRATROPIUM/ALBUTEROL 0.5-3(2.5)MG/3ML NEB HHN SCH ×6 (00:18→20:20)
[2016-11-13] MEDS: METOCLOPRAMIDE HCL 10MG/2ML VIAL IV SCH ×5 (00:35→23:29)
[2016-11-13] MEDS: BLOOD SUGAR DIAGNOSTIC STRIP TEST SCH ×5 (00:35→23:21)
[2016-11-13] MEDS: INSULIN LISPRO 100 UNITS/ML SUBCUT SCH ×5 (00:38→23:21)
[2016-11-13] MEDS: ACETAMINOPHEN 650MG/20.3ML UDC PO PRN ×2 (01:52→23:29)
[2016-11-13] MEDS: METRONIDAZOLE 500 MG PREMIX 100 ML IV SCH ×3 (05:09→17:26)
[2016-11-13] MEDS ORDERED: VANCOMYCIN 1500MG in DEXTROSE 5% WATER 250ML IV PRN (06:00)
[2016-11-13] MEDS: LACTULOSE 20G/30ML UDC PO SCH ×3 (07:06→21:31)
[2016-11-13] MEDS: CEFEPIME 1,000 MG in DEXTROSE 5% WATER 50 ML IV SCH (07:06)
[2016-11-13 07:10] LABS: INR 1.7; PARTIAL THROMBOPLASTIN TIME 32.2 sec (24.0-34.0); PROTHROMBIN TIME 17.7 sec
[2016-11-13 07:12] LABS: AMMONIA 54 uMol/L (<32)
[2016-11-13 07:16] LABS: HEMOGLOBIN. 8.9 g/dL (14.0-18.0); MEAN CORPUSCULAR VOLUME 102.5 fL (80.0-94.0); MEAN PLATELET VOLUME 12.3 fl (7.4-10.4); PLATELET 105 x1000/uL (130-400); RED BLOOD CELL COUNT 2.63 mill/uL (4.7-6.1); RED CELL DISTRIBUTION WIDTH 16.6 % (11.6-14.6)
[2016-11-13 07:29] LABS: CARBON DIOXIDE 22 mEq/L (21-32); CHLORIDE 109 mEq/L (98-107); PHOSPHORUS 4.4 mg/dL (2.5-4.9)
[2016-11-13] MEDS: ASPIRIN 81MG TABLET NG SCH (08:11)
[2016-11-13] MEDS: POTASSIUM CHLORIDE 20MEQ/PACKET PO SCH ×2 (08:11→21:32)
[2016-11-13] MEDS: CALCITRIOL 1MCG/ML AMP IV SCH (08:11)
[2016-11-13] MEDS: FOLIC ACID 1MG TABLET PO SCH (08:11)
[2016-11-13] MEDS: CARVEDILOL 3.125 MG TABLET PO SCH ×2 (08:11→21:00)
[2016-11-13] MEDS: NITROGLYCERIN OINT 1GM/INCH UDPKT TD SCH ×2 (08:12→21:00)
[2016-11-13] MEDS: THIAMINE HCL 100MG TABLET PO SCH (08:12)
[2016-11-13] MEDS: RIFAXIMIN 550 MG TABLET PO SCH ×2 (08:12→21:31)
[2016-11-13] MEDS: MULTIVITAMINS,THER W-MINERALS TABLET PO SCH (08:12)
[2016-11-13] MEDS: MUPIROCIN 2% OINT 22GM TOP SCH (09:00)
[2016-11-13 09:24] LABS: NUCLEATED RED BLOOD CELLS 15 /100 WBC
[2016-11-13 09:38] LABS: PLATELET ESTIMATE SLIGHTLY DECREASED
[2016-11-13] MEDS: DIPHENHYDRAMINE 50MG/ML VIAL IV PRN (15:14)
[2016-11-13] MEDS ORDERED: EPOETIN ALFA 10000UNITS/ML VIAL SUBCUT SCH (21:00)
[2016-11-13] MEDS ORDERED: SODIUM CHLORIDE 0.9% 1000ML BAG (SEPSIS BOLUS) IV NR (22:45)
[2016-11-13] MEDS ORDERED: ALBUMIN HUMAN 25GM/100ML (25%) IV NR (22:45)
[2016-11-13] MEDS ORDERED: SODIUM CHLORIDE 0.9% 500 ML IV NR (23:15)
[2016-11-14] VITALS (54 sets, daily range): BP systolic 58–146; BP diastolic 18–79
[2016-11-14] MEDS: IPRATROPIUM/ALBUTEROL 0.5-3(2.5)MG/3ML NEB HHN SCH ×4 (00:03→12:00)
[2016-11-14] MEDS ORDERED: NOREPINEPHRINE 8 MG in DEXT 5% WATER 242 ML IV PRN (04:00)
[2016-11-14] MEDS: INSULIN LISPRO 100 UNITS/ML SUBCUT SCH ×2 (05:34→11:31)
[2016-11-14] MEDS: BLOOD SUGAR DIAGNOSTIC STRIP TEST SCH ×2 (05:34→11:30)
[2016-11-14] MEDS: METRONIDAZOLE 500 MG PREMIX 100 ML IV SCH (05:38)
[2016-11-14] MEDS: METOCLOPRAMIDE HCL 10MG/2ML VIAL IV SCH ×2 (05:38→11:55)
[2016-11-14] MEDS: LACTULOSE 20G/30ML UDC PO SCH ×2 (05:38→13:45)
[2016-11-14 05:43] LABS: EOSINOPHILS % 2.3 % (0.0-5.0); HEMATOCRIT. 26.6 % (42.0-52.0); HEMOGLOBIN. 8.6 g/dL (14.0-18.0); LYMPHOCYTES % 18.5 % (20.0-50.0); MEAN CORPUSCULAR HEMOGLOBIN 33.8 pg (28.0-32.0); MEAN CORPUSCULAR VOLUME 104.4 fL (80.0-94.0); MEAN PLATELET VOLUME 12.1 fl (7.4-10.4); MONOCYTES % 5.9 % (2.0-8.0); NEUTROPHILS % 72.3 % (40.0-76.0); PLATELET 90 x1000/uL (130-400); RED BLOOD CELL COUNT 2.55 mill/uL (4.7-6.1); RED CELL DISTRIBUTION WIDTH 16.3 % (11.6-14.6)
[2016-11-14 06:18] LABS: CHLORIDE 107 mEq/L (98-107)
[2016-11-14 06:26] LABS: CARBON DIOXIDE 20 mEq/L (21-32); PHOSPHORUS 4.6 mg/dL (2.5-4.9)
[2016-11-14 07:13] LABS: AMMONIA 51 uMol/L (<32)
[2016-11-14] MEDS: MULTIVITAMINS,THER W-MINERALS TABLET PO SCH (08:32)
[2016-11-14] MEDS: ASPIRIN 81MG TABLET NG SCH (08:32)
[2016-11-14] MEDS: FOLIC ACID 1MG TABLET PO SCH (08:32)
[2016-11-14] MEDS: CALCITRIOL 1MCG/ML AMP IV SCH (08:32)
[2016-11-14] MEDS: THIAMINE HCL 100MG TABLET PO SCH (08:32)
[2016-11-14] MEDS: CARVEDILOL 3.125 MG TABLET PO SCH (08:33)
[2016-11-14] MEDS: POTASSIUM CHLORIDE 20MEQ/PACKET PO SCH (08:33)
[2016-11-14] MEDS: NITROGLYCERIN OINT 1GM/INCH UDPKT TD SCH (08:34)
[2016-11-14] MEDS: MUPIROCIN 2% OINT 22GM TOP SCH (08:34)
[2016-11-14] MEDS: RIFAXIMIN 550 MG TABLET PO SCH (08:36)
[2016-11-14] MEDS ORDERED: CEFEPIME 1,000 MG in DEXTROSE 5% WATER 50 ML IV SCH (09:00)
[2016-11-14] MEDS ORDERED: LORAZEPAM 2MG/ML CPJ IV PRN (09:30)
[2016-11-14] MEDS ORDERED: QUETIAPINE FUMARATE 25MG TABLET PO SCH (09:30)
[2016-11-14] MEDS ORDERED: MORPHINE SULFATE 2 MG/ML CPJ (NOT FOR IM USE) IV PRN ×2 (09:30)
[2016-11-14 10:50] LABS: BG BASE EXCESS -3.5 mmol/L (-2.0-2.0); BG CARBOXYHEMOGLOBIN 0.3 % (0.5-1.5); BG DEOXYHEMOGLOBIN 1.2 % (0.0-5.0); BG FRACTION INSPIRED OXYGEN 40; BG HCO3 ACT 18.6 mmol/L (22.0-26.0); BG METHEMOGLOBIN 0.4 % (0.0-1.5); BG OXYGEN SATURATION 98.8 % (92.0-98.5); BG OXYHEMOGLOBIN 98.1 % (94.0-97.0); BG PCO2 24.8 mmHg (35.0-45.0); BG PH 7.493 (7.350-7.450); BG PO2 162.6 mmHg (75.0-100.0); BG SAMPLE SITE RIGHT RADIAL; BG TIDAL VOLUME(mL) 550 mL; BG TOTAL HEMOGLOBIN 10.3 g/dL (12.0-18.0); BG VENT MODE VENT - A/C; BG VENT RATE 12 set
[2016-11-14] MEDS ORDERED: ATROPINE SULFATE 1MG/10ML SYR ONE (10:50)
[2016-11-14] MEDS ORDERED: AMIODARONE HCL 50 MG/ML IV ONE (10:50)
[2016-11-14] MEDS ORDERED: EPINEPHRINE 0.1MG/ML (1:10,000) 10ML SYR ONE (10:50)
[2016-11-14] MEDS ORDERED: DEXTROSE 50% WATER 50ML SYRINGE IV ONE (10:50)
[2016-11-14 12:19] LABS: GLUCOSE URINE NEGATIVE (NEGATIVE); KETONES URINE TRACE (NEGATIVE); LEUKOCYTE ESTERASE URINE 3+ (NEGATIVE); NITRITE URINE NEGATIVE (NEGATIVE); OCCULT BLOOD URINE 3+ (NEGATIVE); PROTEIN URINE 2+ (NEGATIVE); SPECIFIC GRAVITY URINE 1.028 (1.005-1.030); UROBILINOGEN URINE 0.2 E.U./dL (0.2-1.0)
[2016-11-14 12:30] LABS: CLARITY URINE TURBID (CLEAR); COLOR URINE DARK YELLOW (YELLOW)
[2016-11-14] MEDS ORDERED: FENTANYL CITRATE/PF 500 MCG in SODIUM CHLORIDE 0.9% 40 ML IV PRN (13:00)
[2016-11-14] MEDS ORDERED: ACETAZOLAMIDE SODIUM 500MG/VIAL IV NR (14:00)
[2016-11-14] MEDS ORDERED: AMIODARONE HCL 900 MG in DEXT 5% WATER 500 ML IV PRN (15:00)
== END 2016-11-14 14:44 | disposition expired | DRG 4 ==
LOC: ER 12:21 → EDBEDREQ 13:41 → CVICU 15:51 → EDBEDREQ 15:52 → EDBEDREQSVC 15:52 → EDBEDREQTM 15:52 → ENRESERV 19:05 → 5EST 11-12 14:18 → CVICU 11-14 03:30
PROVIDERS: ADMIT Internal Medicine; ATTEND Internal Medicine
PROC: 5A1955Z Respiratory Ventilation, Greater than 96 Consecutive Hours (ICD-10-PCS; principal; 2016-10-24)
PROC: 0BH17EZ Insertion of Endotracheal Airway into Trachea, Via Natural or Artificial Opening (ICD-10-PCS; 2016-10-24)
PROC: 02HV33Z Insertion of Infusion Device into Superior Vena Cava, Percutaneous Approach (ICD-10-PCS; 2016-10-25)
PROC: B548ZZA Ultrasonography of Superior Vena Cava, Guidance (ICD-10-PCS; 2016-10-25)
PROC: 4A133B1 Monitoring of Arterial Pressure, Peripheral, Percutaneous Approach (ICD-10-PCS; 2016-10-25)
PROC: 4A133J1 Monitoring of Arterial Pulse, Peripheral, Percutaneous Approach (ICD-10-PCS; 2016-10-25)
PROC: 0B113F4 Bypass Trachea to Cutaneous with Tracheostomy Device, Percutaneous Approach (ICD-10-PCS; 2016-11-05)
PROC: 0GBG0ZZ Excision of Left Thyroid Gland Lobe, Open Approach (ICD-10-PCS; 2016-11-05)
PROC: 0B21XFZ Change Tracheostomy Device in Trachea, External Approach (ICD-10-PCS; 2016-11-05)
PROC: 0BJ08ZZ Inspection of Tracheobronchial Tree, Via Natural or Artificial Opening Endoscopic (ICD-10-PCS; 2016-11-05)
PROC: 0GBH0ZZ Excision of Right Thyroid Gland Lobe, Open Approach (ICD-10-PCS; 2016-11-05)
PROC: 0BP1XDZ Removal of Intraluminal Device from Trachea, External Approach (ICD-10-PCS; 2016-11-05)
PROC: 0DH63UZ Insertion of Feeding Device into Stomach, Percutaneous Approach (ICD-10-PCS; 2016-11-07)
PROC: 02HV33Z Insertion of Infusion Device into Superior Vena Cava, Percutaneous Approach (ICD-10-PCS; 2016-11-13)
PROC: B548ZZA Ultrasonography of Superior Vena Cava, Guidance (ICD-10-PCS; 2016-11-13)
PROC: 5A1D00Z (ICD-10-PCS; 2016-11-13)
PROC: 5A12012 Performance of Cardiac Output, Single, Manual (ICD-10-PCS; 2016-11-14)
DX: A41.9 Sepsis, unspecified organism (principal); I21.4 Non-ST elevation (NSTEMI) myocardial infarction; K76.7 Hepatorenal syndrome; N17.0 Acute kidney failure with tubular necrosis; R65.21 Severe sepsis with septic shock; J18.1 Lobar pneumonia, unspecified organism; G92 Toxic encephalopathy; E43 Unspecified severe protein-calorie malnutrition; E72.20 Disorder of urea cycle metabolism, unspecified; D69.6 Thrombocytopenia, unspecified; I50.23 Acute on chronic systolic (congestive) heart failure; E11.22 Type 2 diabetes mellitus with diabetic chronic kidney disease; E87.0 Hyperosmolality and hypernatremia; J96.01 Acute respiratory failure with hypoxia; D53.9 Nutritional anemia, unspecified; E11.65 Type 2 diabetes mellitus with hyperglycemia; E78.00 Pure hypercholesterolemia, unspecified; E78.5 Hyperlipidemia, unspecified; E83.39 Other disorders of phosphorus metabolism; E83.51 Hypocalcemia; E87.1 Hypo-osmolality and hyponatremia; E87.5 Hyperkalemia; G93.1 Anoxic brain damage, not elsewhere classified; I13.0 Hypertensive heart and chronic kidney disease with heart failure and stage 1 through stage 4 chronic kidney disease, or unspecified chronic kidney disease; I25.10 Atherosclerotic heart disease of native coronary artery without angina pectoris; I25.5 Ischemic cardiomyopathy; I27.2 Other secondary pulmonary hypertension; D52.9 Folate deficiency anemia, unspecified; I34.0 Nonrheumatic mitral (valve) insufficiency; I48.0 Paroxysmal atrial fibrillation; N18.9 Chronic kidney disease, unspecified; M19.90 Unspecified osteoarthritis, unspecified site; Y90.0 Blood alcohol level of less than 20 mg/100 ml; Z95.5 Presence of coronary angioplasty implant and graft; Z99.11 Dependence on respirator [ventilator] status; Z72.89 Other problems related to lifestyle; Z68.30 Body mass index [BMI] 30.0-30.9, adult
CPT/HCPCS: 36415; 36556; 36569; 36600; 51702; 70551; 71010; 71275; 74000; 76700; 76770; 76937; 80048; 80053; 80061; 80202; 80305; 81001; 82140; 82306; 82330; 82375; 82533; 82550; 82553; 82570; 82607; 82746; 82805; 82962; 83036; 83540; 83550; 83605; 83690; 83735; 83880; 83935; 83970; 84100; 84155; 84156; 84165; 84166; 84300; 84439; 84443; 84478; 84481; 84484; 85025; 85027; 85379; 85610; 85730; 86022; 86705; 86709; 86803; 87040; 87070; 87077; 87086; 87106; 87186; 87340; 93005; 93306; 93970; 94002; 94003; 94640; 94660; 96365; 96368; 96375; 99291; A4216; A6261; C1725; C1752; C1769; C9113; G0482; J0171; J0282; J0330; J0461; J0610; J0636; J0692; J0885; J1120; J1160; J1200; J1250; J1650; J1720; J1815; J1940; J1956; J2060; J2250; J2270; J2370; J2543; J2704; J2765; J2930; J3010; J3105; J3370; J3475; J3490; J7030; J7040; J7050; J7060; J7070; J7611; J7620; P9047; Q9967; A4315